=== PATIENT | female | born 1940 | race Caucasian/White ===

== ENCOUNTER 2016-07-08 20:58 | Observation (INO) | payer MEDICARE, MEDICAID ==
[~2016-07-08] VITALS: Ht 142.2 cm; Wt 59.5 kg
[~2016-07-08 20:58] MED LIST: BACI500O RIGHT EYE; CLAR10TA7 PO; COMB0.2S EACH EYE; GLAUCOMA DROPS EACH EYE; LISI-363 PO; LUMI0.01 RIGHT EYE; REFR0.5D4 EACH EYE
[2016-07-08 21:05] VITALS: BP 161/82; PULSE 51; RESP 16; TEMP 97.9; O2SAT 97
[2016-07-08] MEDS ORDERED: LATA0.002 RIGHT EYE (21:50)
[2016-07-08] MEDS ORDERED: MONT10TA4 PO (21:50)
[2016-07-08] MEDS ORDERED: CHOL1TAB42 PO (21:50)
[2016-07-08] MEDS ORDERED: COMB0.2S EACH EYE (21:50)
[2016-07-08] MEDS ORDERED: FLUT50SP EACH NARE (21:50)
[2016-07-08] MEDS ORDERED: LOSA25TA PO (21:50)
[2016-07-08 22:00] VITALS: BP 185/110; PULSE 45; RESP 14; O2SAT 96
--- NOTE | 2016-07-08 22:26 | PD ---
HPI Chief Complaint: Dizziness Time Seen by Provider: 22:18 Travel History International Travel<30 days: No Contact w/Intl Traveler<30days: No Traveled to known affect area: No History of Present Illness HPI 75-year-old female presents to the emergency department by private transportation for one week of progressive worsening dizziness. Patient has also had right shoulder pain for some time as well that hurts when she moves that shoulder. Patient has had no fever no chills has had nausea no vomiting no headache no loss of vision no double vision occasional blurred vision no chest pain no palpitations no shortness of breath no focal upper or lower extremity numbness tingling or weakness. Family members at bedside to translate as patient is Icelandic-speaking and status A/V gum rolling machine tender offered but patient declined status gum rolling machine tender services. Patient's had no cough no shortness of breath no dysuria frequency or urgency and no skin pain. Shoulder pain with range of motion reportedly is 10 over 10 in intensity but 0/10 intensity at rest. No redness or swelling pallor or coolness of any of the limbs. 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/anemia, ovarian cysts, negative right breast biopsy; no tobacco use; nursing notes reviewed Anemia: Yes Arthritis: Yes Diminished Hearing: Yes ([place]) GERD: Yes Glaucoma: Yes Medical other: Yes (FATTY LIVER, PRE LEUKEMEA) Tetanus Vaccination: Unknown Influenza Vaccination: Yes ?: Not : 0 Ovarian Cysts: Yes Past Surgical History Gynecologic Surgery: Yes (RIGHT BREAST BIOPSY: NEGATIVE) Social History Alcohol Use: No Tobacco Use: No Substance Use: No Allergies-Medications (Allergen,Severity, Reaction): Coded Allergies: No Known Allergies (Unverified , 07/08/16) Reported Meds & Prescriptions Reported Meds & Active Scripts Active Reported Vitamin D-3 (Cholecalciferol) 2,000 Unit Tab 2,000 Unit PO DAILY Losartan (Losartan Potassium) 25 Mg Tab 25 Mg PO DAILY Montelukast (Montelukast Sodium) 10 Mg Tab 10 Mg PO HS Latanoprost Opth Drops (Latanoprost) 0.005% Drops 1 Drop RIGHT EYE HS Refrigerate until opened. Combigan Opth Drops (Brimonidine-Timolol Opth Drops) 0.2-0.5% Soln 1 Drop EACH EYE Q12HR Fluticasone Nasal [place] 50 Mcg/Act Naspr 50 Mcg EACH NARE BID 50 mcg/spray Review of Systems Except as stated in HPI: all other systems reviewed are Neg General / Constitutional: No: Fever, Chills HENT: Positive: Lightheadedness, No: Congestion Cardiovascular: No: Chest Pain or Discomfort, Palpitations, Diaphoresis, Syncope, Dyspnea on exertion Respiratory: No: Shortness of Breath Gastrointestinal: Positive: Nausea, No: Vomiting, Abdominal Pain Genitourinary: No: Dysuria, Flank Pain Musculoskeletal: Positive: Limited ROM (right shoulder), Pain (right shoulder) , No: Myalgias, Arthralgias, Weakness, Cramping, Edema Skin: No Rash Neurologic: Positive: Dizziness, No: Weakness, Syncope, Focal Abnormalities, Coordination Problem, Headache, Change in Mentation, Slurred Speech, Incontinence, Seizures, Sensory Disturbance Psychiatric: No: Anxiety, Depression Endocrine: No: Heat Intolerance Hematologic/Lymphatic: No: Easy Bruising Physical Exam Narrative GENERAL: Well-developed well-nourished elderly female in no acute distress no respiratory distress SKIN: Warm and dry. HEAD: Atraumatic. Normocephalic. EYES: Pupils equal and round. No scleral icterus. No injection or drainage. ENT: No nasal bleeding or discharge. Mucous membranes pink and moist. NECK: Trachea midline. No JVD. CARDIOVASCULAR: Decreased Regular rate and rhythm. RESPIRATORY: No accessory muscle use. Clear to auscultation. Breath sounds equal bilaterally. GASTROINTESTINAL: Abdomen soft, non-tender, nondistended. Hepatic and splenic margins not palpable. MUSCULOSKELETAL: Extremities without clubbing, cyanosis, or edema. No obvious deformities. NEUROLOGICAL: Awake and alert. No obvious cranial nerve deficits. Motor grossly within normal limits. Five out of 5 muscle strength in the arms and legs. Normal speech. PSYCHIATRIC: Appropriate mood and affect; insight and judgment normal. Data Data Last Documented VS Vital Signs Date Time Temp Pulse Resp B/P Pulse Ox O2 Delivery O2 Flow Rate FiO2 07/09/16 00:45 50 16 188/75 97 Room Air 07/08/16 21:05 97.9 Orders Electrocardiogram (07/08/16 22:18) Basic Metabolic Panel (Bmp) (07/08/16 22:18) Complete Blood Count With Diff (07/08/16 22:18) Magnesium (Mg) (07/08/16 22:18) Ckmb (Isoenzyme) Profile (07/08/16 22:18) Troponin I (07/08/16 22:18) Act Partial Throm Time (Ptt) (07/08/16 22:18) Prothrombin Time / Inr (Pt) (07/08/16 22:18) Urinalysis - C+S If Indicated (07/08/16 22:18) Chest, Single Ap (07/08/16 22:18) Ct Brain W/O Iv Contrast(Rout) (07/08/16 22:18) Blood Glucose (07/08/16 22:18) Ecg Monitoring (07/08/16 22:18) Iv Access Insert/Monitor (07/08/16 22:18) Oximetry (07/08/16 22:18) Sodium Chloride 0.9% Flush (Ns Flush) (07/08/16 22:30) Orthostatic Vital Signs (07/08/16 22:18) Shoulder, Complete (>2vws) (07/08/16 ) Hydralazine Inj (Apresoline Inj) (07/09/16 02:00) Place In Observation (07/09/16 ) Vital Signs (Adult) Q4H (07/09/16 02:31) Activity Oob With Assistance (07/09/16 02:31) Snuff Grinder And Screener / Telemetry .CONTINUOUS (07/09/16 02:31) Diet Heart Healthy (07/09/16 Breakfast) Sodium Chloride 0.9% Flush (Ns Flush) (07/09/16 02:45) Sodium Chloride 0.9% Flush (Ns Flush) (07/09/16 09:00) Basic Metabolic Panel (Bmp) (07/10/16 06:00) Complete Blood Count With Diff (07/10/16 06:00) Pt Request For Service (07/09/16 02:31) Case Management Consult (07/09/16 02:31) Naloxone Inj (Narcan Inj) (07/09/16 02:45) Hydralazine Inj (Apresoline Inj) (07/09/16 02:45) Admit Order (Ed Use Only) (07/09/16 ) ^ Saline Lock (07/09/16 02:33) Resp Oxygen Camacho C Titrat 1-4 L (07/09/16 ) Notify Dr: Other (07/09/16 02:33) Sodium Chloride 0.9% Flush (Ns Flush) (07/09/16 09:00) Sodium Chloride 0.9% Flush (Ns Flush) (07/09/16 02:45) Labs Laboratory Tests Test 07/08/16 07/09/16 22:35 00:55 White Blood Count 1.9 TH/MM3 Red Blood Count 3.25 MIL/MM3 Hemoglobin 10.9 GM/DL Hematocrit 33.2 % Mean Corpuscular Volume 101.9 FL Mean Corpuscular Hemoglobin 33.6 PG Mean Corpuscular Hemoglobin 33.0 % Concent Red Cell Distribution Width 12.1 % Platelet Count 165 TH/MM3 Mean Platelet Volume 7.5 FL Neutrophils (%) (Auto) 25.2 % Lymphocytes (%) (Auto) 47.8 % Monocytes (%) (Auto) 12.6 % Eosinophils (%) (Auto) 12.3 % Basophils (%) (Auto) 2.1 % Neutrophils # (Auto) 0.5 TH/MM3 Lymphocytes # (Auto) 1.0 TH/MM3 Monocytes # (Auto) 0.2 TH/MM3 Eosinophils # (Auto) 0.2 TH/MM3 Basophils # (Auto) 0.0 TH/MM3 CBC Comment AUTO DIFF Differential Total Cells 100 Counted Neutrophils % (Manual) 13 % Lymphocytes % 54 % Monocytes % 16 % Eosinophils % 12 % Basophils % 5 % Neutrophils # (Manual) 0.2 TH/MM3 Differential Comment FINAL DIFF MANUAL Platelet Estimate NORMAL Platelet Morphology Comment CLUMPED Prothrombin Time 10.8 SEC Prothromb Time International 1.0 RATIO Ratio Activated Partial 26.1 SEC Thromboplast Time Sodium Level 142 MEQ/L Potassium Level 4.6 MEQ/L Chloride Level 110 MEQ/L Carbon Dioxide Level 24.0 MEQ/L Anion Gap 8 MEQ/L Blood Urea Nitrogen 30 MG/DL Creatinine 1.30 MG/DL Estimat Glomerular Filtration 40 ML/MIN Rate Random Glucose 161 MG/DL Calcium Level 8.5 MG/DL Magnesium Level 2.6 MG/DL Total Creatine Kinase 77 U/L Troponin I LESS THAN 0.02 NG/ML Urine Color YELLOW Urine Turbidity CLEAR Urine pH 5.5 Urine Specific [place] 1.010 Urine Protein TRACE mg/dL Urine Glucose (UA) NEG mg/dL Urine Ketones NEG mg/dL Urine Occult Blood NEG Urine Nitrite NEG Urine Bilirubin NEG Urine Leukocyte Esterase NEG Urine Squamous Epithelial 0-5 /hpf Cells Urine Mucus RARE /lpf Microscopic Urinalysis Comment CULT NOT INDICATED MDM Medical Decision Making Medical Screen Exam Complete: Yes Emergency Medical Condition: Yes Medical Record Reviewed: Yes Interpretation(s) EKG sinus bradycardia with first-degree AV block rate [address] elevation or injury pattern change noted Differential Diagnosis Dizziness, vertigo, TIA, arrhythmia, anemia, dehydration, renal insufficiency, ACS, UTI, uncontrolled hypertension Narrative Course Patient's blood pressure remains elevated and heart rate remains 44 therefore will give hydralazine which will be ordered as hydralazine 10 mg IV however this will be administered as hydralazine 5 mg check affect and then if remaining 5 mg needs to be administered will administered at that time however will only received 5 mg as the first dose of hydralazine IV Blood pressure has started taper downward however patient's heart rate has increased to 87 from 44. Patient complains of dizziness. Patient has been monitored with ongoing bradycardia and now complaining of dizziness with heart rate increasing and blood pressure only modestly decreased at this time we'll plan to admit for observation to further delineate source of bradycardia which may be her normal bradycardia or new sinus bradycardia causing symptomatology. Patient's case discussed with on-call [facility] physician. Physician Communication Physician Communication discussed with [facility] --obs Diagnosis Primary Impression: Dizziness Additional Impression: Bradycardia Admitting Information Admitting Physician Requests: Observation Mary Marie MD July 08, 2016 22:26
[2016-07-08] MEDS ORDERED: SODIUM CHLORIDE 0.9% FLUSH 10 ML FLUSH IVF PRN (22:30)
[2016-07-08 22:40] VITALS: BP 176/71; PULSE 46; RESP 16; O2SAT 98
[2016-07-08 22:47] LABS: BASOPHIL % 2.1 % (0.0-2.0); EOSINOPHIL # 0.2 TH/MM3 (0-0.4); EOSINOPHIL % 12.3 % (0.0-4.0); HEMATOCRIT 33.2 % (35.0-46.0); LYMPH % 47.8 % (9.0-44.0); MEAN CELL VOLUME 101.9 FL (80.0-100.0); MEAN CORPUSCULAR HEMOGLOBIN 33.6 PG (27.0-34.0); MONO % 12.6 % (0.0-8.0); NEUT % 25.2 % (16.0-70.0); PLATELET COUNT 165 TH/MM3 (150-450); RED BLOOD COUNT 3.25 MIL/MM3 (4.00-5.30); RED CELL DISTRIBUTION WIDTH 12.1 % (11.6-17.2); WHITE BLOOD COUNT 1.9 TH/MM3 (4.0-11.0)
--- NOTE | 2016-07-08 22:54 | RADHPO ---
EXAM DATE/TIME: 07/08/2016 22:36 [facility] COMPARISON: No previous studies available for comparison. INDICATIONS : Cephalgia. Dizziness for one week. RADIATION DOSE: 59.60 CTDIvol (mGy) MEDICAL HISTORY : None SURGICAL HISTORY : None. ENCOUNTER: Initial ACUITY: 1 week PAIN SCALE: 10/10 LOCATION: cranial TECHNIQUE: Multiple contiguous axial images were obtained of the head. Using automated exposure control and adj ustment of the mA and/or kV according to patient size, radiation dose was kept as low as reasonably a chievable to obtain optimal diagnostic quality images. FINDINGS: CEREBRUM: The ventricles are normal for age. No evidence of midline shift, mass lesion, hemorrhage or acute in farction. No extra-axial fluid collections are seen. Mild, chronic low attenuation seen in the periv entricular white matter. POSTERIOR FOSSA: The cerebellum and brainstem are intact. The 4th ventricle is midline. The cerebellopontine angle i s unremarkable. EXTRACRANIAL: The visualized portion of the orbits is intact. SKULL: The calvaria is intact. No evidence of skull fracture. CONCLUSION: No acute intracranial abnormality. Mild chronic white matter changes. Caio Rodriguez MD on July 08, 2016 at 22:52 Board Certified Radiologist. This report was verified electronically.
[2016-07-08 22:58] LABS: CHLORIDE 110 MEQ/L (98-107); POTASSIUM 4.6 MEQ/L (3.5-5.1); SODIUM (NA) 142 MEQ/L (136-145)
[2016-07-08 23:01] LABS: ANION GAP 8 MEQ/L (5-15); BLOOD UREA NITROGEN 30 MG/DL (7-18); MAGNESIUM 2.6 MG/DL (1.5-2.5)
[2016-07-08 23:02] LABS: APTT (PATIENT) 26.1 SEC (24.3-30.1); PROTHROMBIN TIME - PATIENT 10.8 SEC (9.8-11.6)
[2016-07-08 23:04] LABS: GLOMERULAR FILTRATION RATE 40 ML/MIN (>89)
[2016-07-08 23:05] LABS: HEMO FLAGS AUTO DIFF
[2016-07-08 23:06] LABS: AUTOMATED NEUTROPHIL # 0.5 TH/MM3 (1.8-7.7)
--- NOTE | 2016-07-08 23:20 | RADHPO ---
EXAM DATE/TIME: 07/08/2016 22:50 [facility] COMPARISON: No previous studies available for comparison. INDICATIONS : Syncopal episode & heart palpatations. MEDICAL HISTORY : Gastroesophageal reflux disease. Arthritis. Anemia. Ovarian cyst. SURGICAL HISTORY : Right breast biopsy. Right ankle pinning. ENCOUNTER: Initial ACUITY: 1 week PAIN SCORE: 0/10 LOCATION: chest FINDINGS: The cardiac silhouette is enlarged in transverse diameter. The lungs are free of acute parenchymal op acity. No effusions are identified. Osseous structures are intact. CONCLUSION: Cardiomegaly. No acute cardiopulmonary disease. Kyle Veloz MD on July 08, 2016 at 23:19 Board Certified Radiologist. This report was verified electronically.
--- NOTE | 2016-07-08 23:21 | RADHPO ---
EXAM DATE/TIME: 07/08/2016 22:54 [facility] COMPARISON: No previous studies available for comparison. INDICATIONS : Right shoulder pain with no known injury. MEDICAL HISTORY : Gastroesophageal reflux disease. Arthritis. Anemia.Ovarian cyst. SURGICAL HISTORY : Right breast biopsy. Right ankle pinning. ENCOUNTER: Initial ACUITY: 1 week PAIN SCORE: 10/10 LOCATION: Right shoulder FINDINGS: Multiple view examination of the right shoulder demonstrates no evidence of fracture or dislocation. The glenohumeral and acromioclavicular joints are maintained. There is normal range of motion betwe en internal and external rotation. Bony mineralization is normal. CONCLUSION: 1. There is no evidence of acute fracture. Kyle Veloz MD on July 08, 2016 at 23:19 Board Certified Radiologist. This report was verified electronically.
[2016-07-08 23:30] LABS: CREATINE KINASE 77 U/L (26-192)
[2016-07-08 23:53] LABS: BASOPHILS 5 % (0-2); EOSINOPHILS 12 % (0-4); NEUTROPHIL # MANUAL DIFF 0.2 TH/MM3 (1.8-7.7); POLYS (SEG NEUTROPHILS) 13 % (16-70); WBC DIFF SAMPLE 100
[2016-07-08 23:55] LABS: PLATELET ESTIMATE SMEAR NORMAL (NORMAL); PLATELET MORPHOLOGY CLUMPED (NORMAL); SCAN/DIFF FINAL DIFF MANUAL
[2016-07-09] VITALS (15 sets, daily range): BP systolic 155–220; BP diastolic 52–80; PULSE 46–88; RESP 16–20; TEMP 96.5–97.7; O2SAT 94–99
[2016-07-09 01:08] LABS: BLOOD, URINE NEG (NEG); GLUCOSE,URINE NEG (NEG); KETONE, URINE NEG (NEG); NITRITE,URINE NEG (NEG); PH, URINE 5.5 (5.0-8.5)
[2016-07-09 01:26] LABS: URINE COLOR YELLOW (YELLW/STRAW)
[2016-07-09 01:28] LABS: COMMENT (UR) CULT NOT INDICATED; CULTURE IF INDICATED CULT NOT INDICATED; MUCUS URINE RARE /lpf (OCC); SQUAMOUS EPITHELIAL CELL URINE 0-5 /hpf (0-5)
[2016-07-09] MEDS ORDERED: hydrALAZINE HCL 20 MG/ML VIAL IV PUSH ONE (02:00)
[2016-07-09] MEDS ORDERED: hydrALAZINE HCL 20 MG/ML VIAL IV PUSH PRN (02:45)
[2016-07-09] MEDS ORDERED: NALOXONE HCL 0.4 MG/ML AMP IV PRN (02:45)
[2016-07-09] MEDS ORDERED: SODIUM CHLORIDE 0.9% FLUSH 10 ML FLUSH IVF PRN (02:45)
[2016-07-09] MEDS ORDERED: SODIUM CHLORIDE 0.9% FLUSH 10 ML FLUSH IV FLUSH PRN (02:45)
[2016-07-09] MEDS ORDERED: ACETAMINOPHEN 325 MG TAB PO ONE (06:00)
[2016-07-09] MEDS ORDERED: SODIUM CHLORIDE 0.9% FLUSH 10 ML FLUSH IV FLUSH SCH (09:00)
[2016-07-09] MEDS ORDERED: LOSARTAN 25 MG TAB PO SCH (11:00)
[2016-07-09] MEDS: SODIUM CHLORIDE 0.9% FLUSH 10 ML FLUSH IV FLUSH SCH ×2 (11:16→20:01)
--- NOTE | 2016-07-09 11:24 | HHI.HP ---
HPI Service [facility] Primary Care Physician Meghann Varghese M.D. Admission Diagnosis dizziness; bradycardia Diagnoses: Chief Complaint: Dizziness Travel History International Travel<30 Days: No Contact w/Intl Traveler <30 Da: No Traveled to Known Affected Are: No History of Present Illness The patient is a 75-year-old female with a past medical history of myelodysplastic syndrome who is presenting to the hospital with dizziness. Apparently the patient's dizziness has been getting worse progressively over the past week. She says she has been eating and drinking well. She does endorse some burning upon urination. She says she saw her blood doctor in the office yesterday and that everything seemed to be stable. The patient also endorses right shoulder pain. She says she has shoulder pain when she lifts her arm up over her head. She denies any chest pain. She does endorse a chronic sinus infection that has been going on for years. She says this morning she feels well and has no further dizziness. She says she worked with physical therapy and did well upon ambulation. Review of Systems Except as stated in HPI: all other systems reviewed are Neg Past Family Social History Past Medical History Myelodysplastic syndrome Osteoarthritis Hypertension Glaucoma Fatty liver disease Ovarian cysts DM Allergies: Coded Allergies: No Known Allergies (Unverified , 07/08/16) Active Ordered Medications Current Medications Medications (Trade) Dose Ordered Sig/Jil Route Start Time Stop Time Status Last Admin (Narcan Inj) 0.4 mg UNSCH PRN IV 07/09/16 02:45 (Apresoline Inj) 10 mg Q30M PRN IV PUSH 07/09/16 02:45 (NS Flush) 2 ml BID IV FLUSH 07/09/16 09:00 07/09/16 11:16 (NS Flush) 2 ml UNSCH PRN IVF 07/09/16 02:45 (Flonase Camacho Spr) 1 spray BID EACH NARE 07/09/16 21:00 (Xalatan 0.005% Opth Soln) 1 drop HS RIGHT EYE 07/09/16 21:00 (Cozaar) 25 mg DAILY PO 07/09/16 11:00 07/09/16 11:15 (Singulair) 10 mg HS PO 07/09/16 21:00 (Alphagan 0.2% Opth Soln) 1 drop Q12HR EACH EYE 07/09/16 21:00 (Vitamin D3) 2,000 units DAILY PO 07/10/16 09:00 (Timoptic 0.5% Opth Soln) 1 drop Q12HR EACH EYE 07/09/16 21:00 Family History CAD Diabetes Social History The patient does not smoke or drink. Physical Exam Vital Signs Vital Signs Date Time Temp Pulse Resp B/P Pulse Ox O2 Delivery O2 Flow Rate FiO2 07/09/16 10:08 94 21 07/09/16 08:00 97.7 72 18 161/70 94 07/09/16 03:45 87 07/09/16 03:30 96.5 80 20 159/76 98 07/09/16 03:00 98 21 07/09/16 03:00 88 16 162/77 98 Room Air 07/09/16 02:30 80 163/80 96 Room Air 07/09/16 02:15 48 172/60 97 Room Air 07/09/16 02:00 62 192/68 97 Room Air 07/09/16 01:30 46 172/52 98 Room Air 07/09/16 00:45 50 16 188/75 97 Room Air 07/09/16 00:45 44 16 189/59 50 18 188/75 75 220/62 07/08/16 22:40 46 16 176/71 98 Room Air 07/08/16 22:00 45 14 185/110 96 Room Air 07/08/16 22:00 14 96 Room Air 07/08/16 21:56 45 14 96 07/08/16 21:05 97.9 51 16 161/82 97 Physical Exam GENERAL: This is a well-nourished, well-developed patient, in no apparent distress. SKIN: No rashes, ecchymoses or lesions. Cool and dry. HEAD: Atraumatic. Normocephalic. No temporal or scalp tenderness. EYES: Pupils equal round and reactive. Extraocular motions intact. No scleral icterus. No injection or drainage. ENT: Nose without bleeding, purulent drainage or septal hematoma. Throat without erythema, tonsillar hypertrophy or exudate. Uvula midline. Airway patent. NECK: Trachea midline. No JVD or lymphadenopathy. Supple, nontender, no meningeal signs. CARDIOVASCULAR: Regular rate and rhythm without murmurs, gallops, or rubs. RESPIRATORY: Clear to auscultation. Breath sounds equal bilaterally. No wheezes , rales, or rhonchi. GASTROINTESTINAL: Abdomen soft, non-tender, nondistended. No hepato-splenomegaly , or palpable masses. No guarding. MUSCULOSKELETAL: Extremities without clubbing, cyanosis, or edema. No joint tenderness, effusion, or edema noted. NEUROLOGICAL: Awake and alert. Cranial nerves II through XII intact. Motor and sensory grossly within normal limits. Five out of 5 muscle strength in all muscle groups. Normal speech. PSYCH: Mood and affect appropriate. Laboratory Laboratory Tests Test 07/08/16 07/09/16 22:35 00:55 White Blood Count 1.9 Red Blood Count 3.25 Hemoglobin 10.9 Hematocrit 33.2 Mean Corpuscular Volume 101.9 Mean Corpuscular Hemoglobin 33.6 Mean Corpuscular Hemoglobin 33.0 Concent Red Cell Distribution Width 12.1 Platelet Count 165 Mean Platelet Volume 7.5 Neutrophils (%) (Auto) 25.2 Lymphocytes (%) (Auto) 47.8 Monocytes (%) (Auto) 12.6 Eosinophils (%) (Auto) 12.3 Basophils (%) (Auto) 2.1 Neutrophils # (Auto) 0.5 Lymphocytes # (Auto) 1.0 Monocytes # (Auto) 0.2 Eosinophils # (Auto) 0.2 Basophils # (Auto) 0.0 CBC Comment AUTO DIFF Differential Total Cells 100 Counted Neutrophils % (Manual) 13 Lymphocytes % 54 Monocytes % 16 Eosinophils % 12 Basophils % 5 Neutrophils # (Manual) 0.2 Differential Comment FINAL DIFF MANUAL Platelet Estimate NORMAL Platelet Morphology Comment CLUMPED Prothrombin Time 10.8 Prothromb Time International 1.0 Ratio Activated Partial 26.1 Thromboplast Time Sodium Level 142 Potassium Level 4.6 Chloride Level 110 Carbon Dioxide Level 24.0 Anion Gap 8 Blood Urea Nitrogen 30 Creatinine 1.30 Estimat Glomerular Filtration 40 Rate Random Glucose 161 Calcium Level 8.5 Magnesium Level 2.6 Total Creatine Kinase 77 Troponin I LESS THAN 0.02 Urine Color YELLOW Urine Turbidity CLEAR Urine pH 5.5 Urine Specific [place] 1.010 Urine Protein TRACE Urine Glucose (UA) NEG Urine Ketones NEG Urine Occult Blood NEG Urine Nitrite NEG Urine Bilirubin NEG Urine Leukocyte Esterase NEG Urine Squamous Epithelial 0-5 Cells Urine Mucus RARE Microscopic Urinalysis Comment CULT NOT INDICATED Result Diagram: 07/08/16223407/08/162234 Imaging Last Impressions Head CT 07/08/162217 Signed Impressions: Service Date/Time: Friday, July 08, 2016 22:36 - CONCLUSION: No acute intracranial abnormality. Mild chronic white matter changes. Caio Rodriguez MD Chest X-Ray 07/08/162217 Signed Impressions: Service Date/Time: Friday, July 08, 2016 22:50 - CONCLUSION: Cardiomegaly. No acute cardiopulmonary disease. Kyle Veloz MD Shoulder X-Ray 07/08/16 0000 Signed Impressions: Service Date/Time: Friday, July 08, 2016 22:54 - CONCLUSION: 1. There is no evidence of acute fracture. Kyle Veloz MD Assessment and Plan Assessment and Plan Dizziness/ Bradycardia The patient reported increasing dizziness over the past week. Heart rate was in the 40s upon presentation. Heart rate has returned to normal values. EKG shows 1st degree AVB. Dizziness has resolved. May be s/t hypertensive urgency. - monitor telemetry. - blood pressure control. - physical therapy. - ADAT. Myelodysplastic syndrome Has had a bone marrow biopsy. Discussed with oncologist, Dr. Lopez, who said right now the plan will be to monitor the pt. She has been afebrile. No evidence of bleeding or infection. ANC 0.5. - neutropenic precautions. - follow CBC. - outpt follow-up with oncology. OK for pt to travel to [place] as long as wearing mask per oncology. - antibiotics if spikes a fever. Hypertensive urgency Blood pressure has improved. May be underlying cause of dizziness. - resume home meds and monitor. Renal insufficiency Creatinine not much higher than apparent baseline. - IV fluids and monitor. - Avoid nephrotoxic agents. Diabetes Glucose 161 on admission. - insulin sliding scale. PPx: SCDs. Code Status Full. Discussed Condition With Pt, pt's family, nurse, Dr. Lopez. Jesus Orellana DO July 09, 2016 11:23
[2016-07-09] MEDS ORDERED: SODIUM CHLOR 0.45% 1000 ML INJ 1,000 ML IV SCH (11:45)
--- NOTE | 2016-07-09 11:58 | EKG ---
Date Performed: 07/08/2016 Time Performed: 22:26:46 PTAGE: 75 years EKG: Sinus bradycardia with 1st degree A-V block Abnormal ECG NO PREVIOUS TRACING DOCTOR: Ernie Garcia Interpretating Date/Time 07/09/2016 11:55:43
[2016-07-09 12:57] LABS: HEMATOCRIT 34.2 % (35.0-46.0); MEAN CELL VOLUME 101.3 FL (80.0-100.0); MEAN CORPUSCULAR HEMOGLOBIN 32.8 PG (27.0-34.0); MEAN CORPUSCULAR HGB CONC 32.4 % (32.0-36.0); PLATELET COUNT 181 TH/MM3 (150-450); RED BLOOD COUNT 3.38 MIL/MM3 (4.00-5.30); WHITE BLOOD COUNT 2.1 TH/MM3 (4.0-11.0)
[2016-07-09 13:04] LABS: HEMO FLAGS AUTO DIFF
[2016-07-09 13:25] LABS: EOSINOPHILS 14 % (0-4); PLATELET ESTIMATE SMEAR NORMAL (NORMAL); PLATELET MORPHOLOGY NORMAL (NORMAL); POLYS (SEG NEUTROPHILS) 19 % (16-70); SCAN/DIFF FINAL DIFF MANUAL; WBC DIFF SAMPLE 100
[2016-07-09 13:30] LABS: NEUTROPHIL # MANUAL DIFF 0.4 TH/MM3 (1.8-7.7)
[2016-07-09] MEDS: INSULIN ASPART SUPPLEMENTAL SCALE SQ SCH ×2 (16:30→21:00)
[2016-07-09] MEDS: BRIMONIDINE TARTRATE 0.2% OPHT SOLN 5 ML BTL EACH EYE SCH (20:50)
[2016-07-09] MEDS: LATANOPROST 0.005% OPHT SOLN 2.5 ML BTL RIGHT EYE SCH (20:50)
[2016-07-09] MEDS: MONTELUKAST SODIUM 10 MG TAB PO SCH (20:50)
[2016-07-09] MEDS: TIMOLOL MALEATE 0.5% OPHT SOLN 5 ML BTL EACH EYE SCH (20:51)
[2016-07-09] MEDS: FLUTICASONE PROPIONATE 50 MCG/ACT 16 GM NASAL SPRAY EACH NARE SCH (20:52)
[2016-07-10] VITALS (8 sets, daily range): BP systolic 100–195; BP diastolic 43–92; PULSE 60–99; RESP 18–20; TEMP 96.2–98.5; O2SAT 65–99
[2016-07-10] MEDS: INSULIN ASPART SUPPLEMENTAL SCALE SQ SCH ×4 (05:45→21:00)
[2016-07-10] MEDS ORDERED: hydrALAZINE HCL 20 MG/ML VIAL IV PUSH ONE (06:15)
[2016-07-10 06:46] LABS: HEMATOCRIT 35.1 % (35.0-46.0); MEAN CELL VOLUME 102.7 FL (80.0-100.0); MEAN CORPUSCULAR HEMOGLOBIN 34.1 PG (27.0-34.0); MEAN CORPUSCULAR HGB CONC 33.2 % (32.0-36.0); PLATELET COUNT 171 TH/MM3 (150-450); RED BLOOD COUNT 3.42 MIL/MM3 (4.00-5.30); RED CELL DISTRIBUTION WIDTH 12.1 % (11.6-17.2); WHITE BLOOD COUNT 2.7 TH/MM3 (4.0-11.0)
[2016-07-10 06:53] LABS: POTASSIUM 4.5 MEQ/L (3.5-5.1)
[2016-07-10 06:57] LABS: BICARBONATE 25.5 MEQ/L (21.0-32.0)
[2016-07-10 07:35] LABS: HEMO FLAGS AUTO DIFF
[2016-07-10 07:42] LABS: EOSINOPHILS 15 % (0-4); PLATELET ESTIMATE SMEAR NORMAL (NORMAL); PLATELET MORPHOLOGY NORMAL (NORMAL); POLYS (SEG NEUTROPHILS) 12 % (16-70); SCAN/DIFF FINAL DIFF MANUAL; WBC DIFF SAMPLE 100
[2016-07-10 07:44] LABS: NEUTROPHIL # MANUAL DIFF 0.3 TH/MM3 (1.8-7.7)
--- NOTE | 2016-07-10 08:51 | EKG ---
Date Performed: 07/09/2016 Time Performed: 17:19:02 PTAGE: 75 years EKG: Sinus bradycardia with 1st degree A-V block Abnormal ECG PREVIOUS TRACING : 07/08/2016 22.26 DOCTOR: Jesus Alberto Kohli Interpretating Date/Time 07/10/2016 08:49:26
--- NOTE | 2016-07-10 09:57 | HHI.PR ---
Subjective Remarks The patient feels well this morning. She denied any dizziness or lightheadedness. She says her right shoulder pain is much improved. She is tolerating a diet. 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 Their questions were answered. Objective Vitals Vital Signs Date Time Temp Pulse Resp B/P Pulse Ox O2 Delivery O2 Flow Rate FiO2 07/10/16 08:51 96.2 78 18 148/77 96 07/10/16 06:03 96.5 60 18 195/92 96 07/10/16 00:00 96.2 60 18 164/82 96 07/09/16 20:00 97.0 76 18 155/65 96 07/09/16 20:00 68 07/09/16 19:20 96 21 07/09/16 16:00 97.0 67 18 163/72 07/09/16 12:00 97.0 62 18 167/64 99 07/09/16 10:08 94 21 I/O 07/09/16 07/09/16 07/09/16 07/10/16 07/10/16 07/10/16 07:00 15:00 23:00 07:00 15:00 23:00 Intake Total 240 ml 890 ml 240 ml Output Total 550 ml Balance 240 ml 890 ml -550 ml 240 ml Intake Oral 240 ml 890 ml 240 ml Output Urine Total 550 ml # Voids 4 3 # Bowel Movements 0 1 Result Diagram: 07/10/16 0537 07/10/16 0557 Imaging Last Impressions Head CT 07/08/162217 Signed Impressions: Service Date/Time: Friday, July 08, 2016 22:36 - CONCLUSION: No acute intracranial abnormality. Mild chronic white matter changes. Caio Rodriguez MD Chest X-Ray 07/08/162217 Signed Impressions: Service Date/Time: Friday, July 08, 2016 22:50 - CONCLUSION: Cardiomegaly. No acute cardiopulmonary disease. Kyle Veloz MD Shoulder X-Ray 07/08/16 0000 Signed Impressions: Service Date/Time: Friday, July 08, 2016 22:54 - CONCLUSION: 1. There is no evidence of acute fracture. Kyle Veloz MD Objective Remarks GENERAL: This is a well-nourished, well-developed patient, in no apparent distress. SKIN: No rashes, ecchymoses or lesions. Cool and dry. HEAD: Atraumatic. Normocephalic. No temporal or scalp tenderness. EYES: Pupils equal round and reactive. Extraocular motions intact. No scleral icterus. No injection or drainage. ENT: Nose without bleeding, purulent drainage or septal hematoma. Throat without erythema, tonsillar hypertrophy or exudate. Uvula midline. Airway patent. NECK: Trachea midline. No JVD or lymphadenopathy. Supple, nontender, no meningeal signs. CARDIOVASCULAR: Regular rate and rhythm without murmurs, gallops, or rubs. RESPIRATORY: Clear to auscultation. Breath sounds equal bilaterally. No wheezes , rales, or rhonchi. GASTROINTESTINAL: Abdomen soft, non-tender, nondistended. No hepato-splenomegaly , or palpable masses. No guarding. MUSCULOSKELETAL: Extremities without clubbing, cyanosis, or edema. No joint tenderness, effusion, or edema noted. NEUROLOGICAL: Awake and alert. Cranial nerves II through XII intact. Motor and sensory grossly within normal limits. Five out of 5 muscle strength in all muscle groups. Normal speech. PSYCH: Mood and affect appropriate. Medications and IVs Current Medications Medications (Trade) Dose Ordered Sig/Ijl Route Start Time Stop Time Status Last Admin (Narcan Inj) 0.4 mg UNSCH PRN IV 07/09/16 02:45 (NS Flush) 2 ml BID IV FLUSH 07/09/16 09:00 07/09/16 11:16 (NS Flush) 2 ml UNSCH PRN IVF 07/09/16 02:45 (Flonase Camacho Spr) 1 spray BID EACH NARE 07/09/16 21:00 07/09/16 20:52 (Xalatan 0.005% Opth Soln) 1 drop HS RIGHT EYE 07/09/16 21:00 07/09/16 20:50 (Singulair) 10 mg HS PO 07/09/16 21:00 07/09/16 20:50 (Alphagan 0.2% Opth Soln) 1 drop Q12HR EACH EYE 07/09/16 21:00 07/09/16 20:50 (Vitamin D3) 2,000 units DAILY PO 07/10/16 09:00 (Timoptic 0.5% Opth Soln) 1 drop Q12HR EACH EYE 07/09/16:00 07/09/16 20:51 (Cozaar) 50 mg DAILY PO 07/10/16 09:15 A/P Assessment and Plan Dizziness/ Bradycardia/ Possible sick sinus syndrome The patient reported increasing dizziness over the past week. Heart rate has been in the 40s regularly on telemetry. EKG shows 1st degree AVB. Trops negative. Dizziness has resolved. May be s/t hypertensive urgency. Telemetry revealed episodes of tachycardia, including a 9 beat run of V tach. Concern for sick sinus syndrome. - monitor on telemetry. - blood pressure control. - physical therapy. - ADAT. - check an echo. - repeat EKG. - cardiology consult pending. Myelodysplastic syndrome Has had a bone marrow biopsy. Discussed with oncologist, Dr. Lopez, who said right now the plan will be to monitor the pt. She has been afebrile. No evidence of bleeding or infection. ANC 0.3. - neutropenic precautions. - follow CBC. - outpt follow-up with oncology. - antibiotics if spikes a fever. Hypertensive urgency Blood pressure has improved. May be underlying cause of dizziness. - resume home meds and monitor. Increase Cozaar to 50 mg daily. Renal insufficiency Creatinine not much higher than apparent baseline. - IV fluids and monitor. Improved. - Avoid nephrotoxic agents. Diabetes Glucose 161 on admission. - insulin sliding scale. Well controlled. PPx: SCDs. Discharge Planning Awaiting cardiology evaluation. Jesus Orellana DO July 10, 2016 09:57
[2016-07-10] MEDS: FLUTICASONE PROPIONATE 50 MCG/ACT 16 GM NASAL SPRAY EACH NARE SCH ×2 (10:20→21:51)
[2016-07-10] MEDS: CHOLECALCIFEROL (VIT D3) 1000 UNIT TAB PO SCH (10:21)
[2016-07-10] MEDS: SODIUM CHLORIDE 0.9% FLUSH 10 ML FLUSH IV FLUSH SCH ×2 (10:21→21:51)
[2016-07-10] MEDS: LOSARTAN 50 MG TAB PO SCH (10:23)
[2016-07-10] MEDS: TIMOLOL MALEATE 0.5% OPHT SOLN 5 ML BTL EACH EYE SCH ×2 (10:24→21:51)
[2016-07-10] MEDS: BRIMONIDINE TARTRATE 0.2% OPHT SOLN 5 ML BTL EACH EYE SCH ×2 (10:24→21:51)
[2016-07-10 16:38] LABS: FREE T3 2.44 PG/ML (2.18-3.98); FREE T4 1.14 NG/DL (0.76-1.46)
--- NOTE | 2016-07-10 16:45 | EC ---
Study Study Date:07/10/2016 STUDY CONCLUSIONS SUMMARY - Procedure narrative: Transthoracic echocardiography. Image quality was fair. Scanning was performed from the parasternal, apical, and subcostal acoustic windows. - Left ventricle: The cavity size was normal. Wall thickness was normal. Systolic function was normal. The estimated ejection fraction was in the range of 55% to 60%. Wall motion was normal; there were no regional wall motion abnormalities. - Tricuspid valve: Trace regurgitation. If LV function is below 40, please consider prescribing an ACEI or ARB or document rationale for non-use. PROCEDURE DATA STUDY STATUS: Elective. Procedure: Transthoracic echocardiography. Image quality was fair. Scanning was performed from the parasternal, apical, and subcostal acoustic windows. Study completion: The patient tolerated the procedure well. Transthoracic echocardiography. M-mode, complete 2D, complete spectral Doppler, and color Doppler. Height: Height: 56in. Weight: Weight: 126.7lb. Body mass index: BMI: 28.5kg/m^2. Body surface area: BSA: 1.46m^2. Patient status: Inpatient. CARDIAC ANATOMY LEFT VENTRICLE: The cavity size was normal. Wall thickness was normal. Systolic function was normal. The estimated ejection fraction was in the range of 55% to 60%. Wall motion was normal; there were no regional wall motion abnormalities. AORTIC VALVE: Trileaflet; normal thickness leaflets. Doppler: Transvalvular velocity was within the normal range. There was no stenosis. No regurgitation. Indexed valve area: 1.82cm^2/m^2 (Vmax). AORTA: Aortic root: The aortic root was normal in size. MITRAL VALVE: Structurally normal valve. Doppler: Transvalvular velocity was within the normal range. There was no evidence for stenosis. No regurgitation. LEFT ATRIUM: The atrium was normal in size. RIGHT VENTRICLE: The cavity size was normal. Wall thickness was normal. PULMONIC VALVE: Doppler: Transvalvular velocity was within the normal range. There was no evidence for stenosis. No regurgitation. TRICUSPID VALVE: Structurally normal valve. Doppler: Transvalvular velocity was within the normal range. Trace regurgitation. PULMONARY ARTERY: The main pulmonary artery was normal-sized. Systolic pressure was within the normal range. RIGHT ATRIUM: The atrium was normal in size. PERICARDIUM: There was no pericardial effusion. SYSTEMIC VEINS: Inferior vena cava: The vessel was normal in size. Patient weight: 126.7lb _Ejection fraction:_ 65-75% _Fractional shortening:_ 32% up to 5Kg 5-11.5Kg 11.6-22.9Kg 23-45Kg 45-57Kg Aortic Root 7-13 <17 13-22 17-27 17-27 LA diam 6-13 <23 24-38 33-47 37-40 RVID 10-17 7-15 7-15 7-18 8-17 LVIDd 12-22 <32 24-38 33-47 37-40 LVPW 2-4 3-6 5-7 6-8 7-8 IVS 2-4 3-6 5-7 6-8 7-8 BASIC MEASUREMENTS ADULT NORMAL Left ventricle LV internal dimension, ED, chordal *37.8 mm 43-52 level, PLAX LV internal dimension, ES, chordal 30.9 mm 23-38 level, PLAX Fractional shortening, chordal level, *18 % >29 PLAX LV posterior wall thickness, ED 9.96 mm IVS/LVPW ratio, ED 1.02 <1.3 Ventricular septum Septal thickness, ED 10.2 mm Left atrium Anterior-posterior dimension 37 mm Anterior-posterior dimension index *2.53 cm/m^2 <2.2 BASIC MEASUREMENTS ADULT NORMAL Aortic valve Leaflet separation 19 mm 15-26 Aorta Root diameter, ED *39 mm 20-37 DOPPLER MEASUREMENTS ADULT NORMAL Main pulmonary artery Pressure, S 27 mm Hg =30 Aortic valve Peak velocity, S 107 cm/s Valve area index, Vmax 1.82 cm^2/m^2 Mitral valve Peak E-wave velocity 64.7 cm/s Peak A-wave velocity 109 cm/s Deceleration time *278 ms 150-230 Peak E/A ratio 0.6 Tricuspid valve Regurgitant peak velocity 208 cm/s Peak RV-RA gradient, S 17 mm Hg Maximal regurgitant velocity 208 cm/s Systemic veins Estimated CVP 10 mm Hg Right ventricle RV pressure, S 27 mm Hg <30 LEGEND: Mean values are shown as u=mean value. Asterisk (*) ya values outside specified normal range. Prepared and signed by Ernie Garcia [id number]
[2016-07-10] MEDS: ACETAMINOPHEN 500 MG CPLT PO PRN (17:24)
[2016-07-10] MEDS: MONTELUKAST SODIUM 10 MG TAB PO SCH (21:50)
[2016-07-10] MEDS: LATANOPROST 0.005% OPHT SOLN 2.5 ML BTL RIGHT EYE SCH (21:52)
[2016-07-11] VITALS: BP 139/49; PULSE 55; RESP 18; TEMP 96.4; O2SAT 96
[2016-07-11 04:00] VITALS: BP 152/65; PULSE 64; RESP 18; TEMP 97.8; O2SAT 94
[2016-07-11] MEDS: INSULIN ASPART SUPPLEMENTAL SCALE SQ SCH ×2 (07:00→11:00)
[2016-07-11 08:00] VITALS: BP 194/73; PULSE 108; PULSE 80; RESP 22; TEMP 97.2; O2SAT 99
[2016-07-11 08:25] VITALS: O2SAT 97
--- NOTE | 2016-07-11 08:30 | MB ---
cc: ROYA STEVENS MD DATE OF CONSULTATION 07/11/2016 REASON FOR CONSULTATION Bradycardia questionably symptomatic HISTORY OF PRESENT ILLNESS The patient is a very pleasant Malawian-speaking 75-year-old woman with no prior cardiac history who presents with generalized weakness for about a month. A res counselor was used for this interview. The patient says that she has been progressively losing her balance, but no actual syncope and no specific episodes of lightheadedness, more just generalized weakness, although even with translation, the patient is somewhat vague about these details. On telemetry, she has had periodic bradycardia particularly at night where it is most marked, although this was asymptomatic as she was resting in bed. Currently this morning, she looks and feels well, denying any active symptoms. She has no chest pain, current lightheadedness or dizziness and she denies elaine syncope. PAST MEDICAL HISTORY 1. Myelodysplastic syndrome 2. Osteoarthritis 3. Hypertension 4. Glaucoma 5. Fatty liver disease 6. Diabetes CURRENT MEDICATIONS Cozaar ALLERGIES NO KNOWN DRUG ALLERGIES. PHYSICAL EXAMINATION VITAL SIGNS: Afebrile, pulse 64, respiratory 18, BP 152/65 sating 94% on two liters. GENERAL: This is a pleasant thin elderly woman in no distress. NECK: No JVD. LUNGS: Clear auscultation bilaterally. CARDIOVASCULAR: Regular rate rhythm. No murmurs appreciated. ABDOMEN: Benign. EXTREMITIES: No edema. LABORATORY DATA Sodium 145, potassium 4.5, chloride 112, bicarb 25.5, BUN 24, creatinine 1.2. Cardiac enzymes are negative. White count is 2.7 with 0.3 neutrophils, hematocrit is 35.1. EKG shows sinus bradycardia with first-degree AV block. Telemetry shows sinus bradycardia particularly marked overnight while the patient is presumably sleeping. There was one questionable wide complex tachycardia, but this was clearly artifact. There is no evidence of any actual ventricular dysrhythmia. IMPRESSION Bradycardia. I believe the patient's bradycardia is asymptomatic and not related to her current presentation. She maintains adequate daytime rates and her particularly marked bradycardia is at night, likely reflecting some element of sleep apnea as well. I asked the nurses to ambulate her while she is on telemetry to ensure she has a reasonable heart rate response. I think it is very unlikely a pacemaker would improve her symptoms or quality of life, although it would certainly increase her heart rate. I think it is far more likely that her generalized weakness is due to her hematologic process, but we will continue to watch her on telemetry particularly during the daytime hours when she is most likely to be symptomatic from any exacerbation of her baseline bradycardia. Thank you again for the opportunity to participate in this patient's care. MD NICOLETTE Chew/ELBA /8:12 AM /8:22 AM
[2016-07-11] MEDS: CHOLECALCIFEROL (VIT D3) 1000 UNIT TAB PO SCH (09:30)
[2016-07-11] MEDS: BRIMONIDINE TARTRATE 0.2% OPHT SOLN 5 ML BTL EACH EYE SCH (09:30)
[2016-07-11] MEDS: TIMOLOL MALEATE 0.5% OPHT SOLN 5 ML BTL EACH EYE SCH (09:30)
[2016-07-11] MEDS: LOSARTAN 50 MG TAB PO SCH (09:30)
[2016-07-11] MEDS: SODIUM CHLORIDE 0.9% FLUSH 10 ML FLUSH IV FLUSH SCH (09:31)
[2016-07-11] MEDS: FLUTICASONE PROPIONATE 50 MCG/ACT 16 GM NASAL SPRAY EACH NARE SCH (09:31)
[2016-07-11] MEDS ORDERED: GETGO ROLLING W1 MI1 (10:25)
[2016-07-11] MEDS ORDERED: COZA50TA PO (10:25)
--- NOTE | 2016-07-11 10:26 | HHI.DCPOC ---
Discharge Care Plan Diagnosis: (1) Myelodysplastic syndrome (2) Bradycardia (3) Dizziness (4) Chronic right shoulder pain Goals to Promote Your Health * To prevent worsening of your condition and complications * To maintain your health at the optimal level Directions to Meet Your Goals Take your medications as prescribed Follow your dietary instruction Follow activity as directed Keep your appointments as scheduled Take your immunizations and boosters as scheduled If your symptoms worsen call your PCP, if no PCP go to Urgent Care Center or Emergency Room Smoking is Dangerous to Your Health. Avoid second hand smoke Call the 24-hour hour crisis hotline for domestic abuse at Jesus Orellana DO July 11, 2016 10:26
--- NOTE | 2016-07-11 10:44 | HHI.DS ---
Discharge Summary Admission Date July 09, 2016 at 02:38 Discharge Date: July 11, 2016 Admitting Diagnosis dizziness; bradycardia (1) Chronic right shoulder pain ICD Code: M25.511 (2) Myelodysplastic syndrome ICD Code: D46.9 (3) Bradycardia ICD Code: R00.1 Diagnosis: Principal (4) Dizziness ICD Code: R42 Diagnosis: Principal Procedures None. Brief History - From Admission The patient is a 75-year-old female with a past medical history of myelodysplastic syndrome who is presenting to the hospital with dizziness. Apparently the patient's dizziness has been getting worse progressively over the past week. She says she has been eating and drinking well. She does endorse some burning upon urination. She says she saw her blood doctor in the office yesterday and that everything seemed to be stable. The patient also endorses right shoulder pain. She says she has shoulder pain when she lifts her arm up over her head. She denies any chest pain. She does endorse a chronic sinus infection that has been going on for years. She says this morning she feels well and has no further dizziness. She says she worked with physical therapy and did well upon ambulation. CBC/BMP: 07/10/16 0537 07/10/16 0557 Significant Findings Laboratory Tests Test 07/08/16 07/09/16 07/09/16 07/10/16 22:35 12:47 18:50 05:37 White Blood Count 1.9 TH/MM3 2.1 TH/MM3 2.7 TH/MM3 (4.0-11.0) (4.0-11.0) (4.0-11.0) Red Blood Count 3.25 MIL/MM3 3.38 MIL/MM3 3.42 MIL/MM3 (4.00-5.30) (4.00-5.30) (4.00-5.30) Hemoglobin 10.9 GM/DL 11.1 GM/DL (11.6-15.3) (11.6-15.3) Hematocrit 33.2 % 34.2 % (35.0-46.0) (35.0-46.0) Mean Corpuscular Volume 101.9 FL 101.3 FL 102.7 FL (80.0-100.0) (80.0-100.0) (80.0-100.0) Lymphocytes (%) (Auto) 47.8 % (9.0-44.0) Monocytes (%) (Auto) 12.6 % (0.0-8.0) Eosinophils (%) (Auto) 12.3 % (0.0-4.0) Basophils (%) (Auto) 2.1 % (0.0-2.0) Neutrophils # (Auto) 0.5 TH/MM3 (1.8-7.7) Neutrophils % (Manual) 13 % (16-70) 12 % (16-70) Lymphocytes % 54 % (9-44) 54 % (9-44) 63 % (9-44) Monocytes % 16 % (0-8) 13 % (0-8) 10 % (0-8) Eosinophils % 12 % (0-4) 14 % (0-4) 15 % (0-4) Basophils % 5 % (0-2) Neutrophils # (Manual) 0.2 TH/MM3 0.4 TH/MM3 0.3 TH/MM3 (1.8-7.7) (1.8-7.7) (1.8-7.7) Platelet Morphology Comment CLUMPED (NORMAL) Chloride Level 110 MEQ/L (98-107) Blood Urea Nitrogen 30 MG/DL (7-18) Creatinine 1.30 MG/DL (0.50-1.00) Estimat Glomerular Filtration 40 ML/MIN (>89) Rate Random Glucose 161 MG/DL (74-106) Magnesium Level 2.6 MG/DL (1.5-2.5) Troponin I LESS THAN 0.02 LESS THAN 0.02 NG/ML NG/ML (0.02-0.05) (0.02-0.05) Thyroid Stimulating Hormone 5.940 uIU/ML 3rd Gen (0.358-3.740) Mean Corpuscular Hemoglobin 34.1 PG (27.0-34.0) Test 07/10/16 05:57 Chloride Level 112 MEQ/L (98-107) Blood Urea Nitrogen 24 MG/DL (7-18) Creatinine 1.20 MG/DL (0.50-1.00) Estimat Glomerular Filtration 44 ML/MIN (>89) Rate Imaging Last Impressions Head CT 07/08/162217 Signed Impressions: Service Date/Time: Friday, July 08, 2016 22:36 - CONCLUSION: No acute intracranial abnormality. Mild chronic white matter changes. Caio Rodriguez MD Chest X-Ray 07/08/162217 Signed Impressions: Service Date/Time: Friday, July 08, 2016 22:50 - CONCLUSION: Cardiomegaly. No acute cardiopulmonary disease. Kyle Veloz MD Shoulder X-Ray 07/08/16 0000 Signed Impressions: Service Date/Time: Friday, July 08, 2016 22:54 - CONCLUSION: 1. There is no evidence of acute fracture. Kyle Veloz MD PE at Discharge GENERAL: This is a well-nourished, well-developed patient, in no apparent distress. SKIN: No rashes, ecchymoses or lesions. Cool and dry. HEAD: Atraumatic. Normocephalic. No temporal or scalp tenderness. EYES: Pupils equal round and reactive. Extraocular motions intact. No scleral icterus. No injection or drainage. ENT: Nose without bleeding, purulent drainage or septal hematoma. Throat without erythema, tonsillar hypertrophy or exudate. Uvula midline. Airway patent. NECK: Trachea midline. No JVD or lymphadenopathy. Supple, nontender, no meningeal signs. CARDIOVASCULAR: Regular rate and rhythm without murmurs, gallops, or rubs. RESPIRATORY: Clear to auscultation. Breath sounds equal bilaterally. No wheezes , rales, or rhonchi. GASTROINTESTINAL: Abdomen soft, non-tender, nondistended. No hepato-splenomegaly , or palpable masses. No guarding. MUSCULOSKELETAL: Extremities without clubbing, cyanosis, or edema. No joint tenderness, effusion, or edema noted. NEUROLOGICAL: Awake and alert. Cranial nerves II through XII intact. Motor and sensory grossly within normal limits. Five out of 5 muscle strength in all muscle groups. Normal speech. PSYCH: Mood and affect appropriate. Pt update on day of discharge The pt was feeling well and wanted to go home. Her sister was at the bedside. She saw the marketing content coordinator this morning. She has had no more dizziness even when ambulating. Right shoulder pain is stable. Hospital Course Dizziness/ Bradycardia The patient reported increasing dizziness over the past week. Heart rate has been in the 40s regularly on telemetry. EKG shows 1st degree AVB. Trops negative. Dizziness has resolved. Echo unremarkable. Cardiology was consulted. The pt's heart rate responded appropriately to ambulating. She remained asymptomatic. TSH was elevated but free T3 and free T4 were within normal limits. She worked with physical therapy. The pt is on timolol eye drops. The pt was told that her eye drops may be contributing to her bradycardia. She was instructed to contact her duck farmer about switching timolol to another medication for glaucoma as it was recommended to discontinue timolol for now. The pt was agreeable. The pt will follow up with cardiology as an outpt. Myelodysplastic syndrome Has had a bone marrow biopsy. Discussed with oncologist, Dr. Lopez, who said right now the plan will be to monitor the pt. She has been afebrile. No evidence of bleeding or infection. ANC 0.3. She was placed on neutropenic precautions. She will have outpt follow-up with oncology. Hypertensive urgency We increases her home Cozaar dose to 50 mg daily. Her blood pressure improved. She will follow up with her PCP. Renal insufficiency Creatinine not much higher than apparent baseline. She received IV fluids and her creatinine improved. She will follow up with her PCP. Diabetes Glucose 161 on admission but remained well controlled during the admission. Pt Condition on Discharge: Stable Discharge Disposition: Discharge Home Discharge Time: <= 30 minutes Discharge Instructions DIET: Follow Instructions for: Diabetic Diet Activities you can perform: Weight Bearing as Javier Follow up Referrals: Cardiology - [address] Jameson Oncology - [address] Lopez PCP Follow-up - 1 Week New Medications: Walker Rolling/GetGo (Walker Rolling/GetGo) 1 Mis Mis 1 EA .ROUTE DIRECTED #1 EA Losartan (Cozaar) 50 Mg Tab 50 MG PO DAILY Blood Pressure Management #30 TAB Continued Medications: Brimonidine-Timolol Opth Drops (Combigan Opth Drops) 0.2-0.5% Soln 1 DROP EACH EYE Q12HR Glaucoma Ref 0 BOTTLE Cholecalciferol (Vitamin D-3) 2,000 Unit Tab 2000 UNIT PO DAILY Fluticasone Nasal [place] (Fluticasone Nasal [place]) 50 Mcg/Act Naspr 50 MCG EACH NARE BID 50 mcg/spray Allergy Management #1 Ref 0 BOTTLE Latanoprost Opth Drops (Latanoprost Opth Drops) 0.005% Drops 1 DROP RIGHT EYE HS Refrigerate until opened. Glaucoma #2.5 Ref 0 ML Montelukast (Montelukast) 10 Mg Tab 10 MG PO HS #30 Ref 0 TAB Discontinued Medications: Losartan (Losartan) 25 Mg Tab 25 MG PO DAILY Blood Pressure Management #30 Ref 0 TAB Jesus Orellana DO July 11, 2016 10:44
[2016-07-11] MEDS: ACETAMINOPHEN 500 MG CPLT PO PRN (10:45)
[2016-07-11 13:17] VITALS: BP 112/52; PULSE 45; RESP 18; O2SAT 98
--- NOTE | 2016-07-11 16:06 | EKG ---
Date Performed: 07/10/2016 Time Performed: 06:06:36 PTAGE: 75 years EKG: Sinus jessica arrhythmia Consider left atrial abnormality First degree block Abnormal ECG Com pared to PREVIOUS TRACING of 07/09/2016, no significant change. PREVIOUS TRACIN07/09/2016 17.1 9 DOCTOR: Kyle Arvizu Interpretating Date/Time 07/11/2016 16:05:17
== END 2016-07-11 14:14 | disposition home or self-care (01) ==
LOC: PHED 20:58 → PHEDH 07-09 02:38 → PH3A 07-09 03:31
PROVIDERS: ADMIT Hospitalist; ATTEND Hospitalist
DX: R42 Dizziness and giddiness (principal); R00.1 Bradycardia, unspecified; G89.29 Other chronic pain; M25.511 Pain in right shoulder; D46.9 Myelodysplastic syndrome, unspecified; E11.9 Type 2 diabetes mellitus without complications; N28.9 Disorder of kidney and ureter, unspecified; I16.0 Hypertensive urgency; M19.90 Unspecified osteoarthritis, unspecified site; K76.0 Fatty (change of) liver, not elsewhere classified; K21.9 Gastro-esophageal reflux disease without esophagitis; H91.90 Unspecified hearing loss, unspecified ear; H40.9 Unspecified glaucoma; Z85.6 Personal history of leukemia
CPT/HCPCS: 70450; 71010; 73030; 80048; 81001; 82550; 82948; 83735; 84439; 84443; 84481; 84484; 85007; 85027; 85610; 85730; 93005; 93306; 96374; 97110; 97116; 97162; 99285; G0378; G8987; G8988; J0360

== ENCOUNTER 2017-03-08 10:40 | Emergency (ER) | payer MEDICARE, MEDICAID ==
[~2017-03-08] VITALS: Ht 144.8 cm; Wt 58.0 kg
[~2017-03-08 10:40] MED LIST changes: -BACI500O RIGHT EYE; +CHOL1TAB42 PO; -CLAR10TA7 PO; +COZA50TA PO; +FLUT50SP EACH NARE; +GETGO ROLLING W1 MI1; -GLAUCOMA DROPS EACH EYE; +LATA0.002 RIGHT EYE; -LISI-363 PO; -LUMI0.01 RIGHT EYE; +MONT10TA4 PO; -REFR0.5D4 EACH EYE
[2017-03-08 10:44] VITALS: BP 209/88; PULSE 75; RESP 16; TEMP 99.5; O2SAT 98
[2017-03-08] MEDS ORDERED: FLUO0.0122 EACH EAR (10:56)
--- NOTE | 2017-03-08 11:21 | PD ---
HPI Chief Complaint: Cold / Flu Symptoms Time Seen by Provider: 11:22 Travel History International Travel<30 days: No Contact w/Intl Traveler<30days: No Traveled to known affect area: No History of Present Illness HPI 76-year-old female presents to emergency department complaining of cough and cold-like symptoms for approximately 3 days. States she is having clear rhinorrhea and a nonproductive cough. Denies shortness of breath or chest pain. States that she has thick phlegm that will get "stuck in her throat" that makes it difficult to breathe but she is able to clear this on her own. Denies fevers or chills. She does not know if she has had any sick contacts. Denies nausea, vomiting or diarrhea. PFSH Past Medical History Anemia: Yes Arthritis: Yes Diabetes: Yes Patient Takes Glucophage: No Diminished Hearing: Yes ([place] BILAT) GERD: Yes Glaucoma: Yes Hypertension: Yes Tetanus Vaccination: Unknown : 0 Ovarian Cysts: Yes Past Surgical History Gynecologic Surgery: Yes (RIGHT BREAST BIOPSY: NEGATIVE) Social History Alcohol Use: No Tobacco Use: No Substance Use: No Allergies-Medications (Allergen,Severity, Reaction): Coded Allergies: No Known Allergies (Unverified Adverse Reaction, Unknown, 03/08/17) Reported Meds & Prescriptions Reported Meds & Active Scripts Active Azithromycin 250 Mg Tab 250 Mg PO DIRECTED Take 2 tabs (500 mg) on day 1 then 1 tab daily x 4 days. Ventolin Hfa 18 GM Inh (Albuterol Sulfate) 90 Mcg/Act Aer 1 Puff INH Q4H PRN Cozaar (Losartan Potassium) 50 Mg Tab 50 Mg PO DAILY Reported Fluocinolone Otic Drops 0.01% Drops 5 Drop EACH EAR BID Vitamin D-3 (Cholecalciferol) 2,000 Unit Tab 2,000 Unit PO DAILY Combigan Opth Drops (Brimonidine-Timolol Opth Drops) 0.2-0.5% Soln 1 Drop EACH EYE Q12HR Fluticasone Nasal Channing 50 Mcg/Act Naspr 50 Mcg EACH NARE BID 50 mcg/spray Review of Systems Except as stated in HPI: all other systems reviewed are Neg Physical Exam Narrative GENERAL: Well-nourished, well-developed patient. SKIN: Focused skin assessment warm/dry. HEAD: Normocephalic. EYES: No scleral icterus. No injection or drainage. NECK: Supple, trachea midline. No JVD or lymphadenopathy. THROAT: No pharyngeal injection, exudates, or tonsillar hypertrophy. Airway is patent. CARDIOVASCULAR: Regular rate and rhythm without murmurs, gallops, or rubs. RESPIRATORY: Bilateral lower lobes rhonchi. No rales or wheezing noted MUSCULOSKELETAL: No cyanosis, or edema. BACK: Nontender without obvious deformity. No CVA tenderness. Data Data Last Documented VS Vital Signs Date Time Temp Pulse Resp B/P (MAP) Pulse Ox O2 Delivery O2 Flow Rate FiO2 03/08/17 10:44 99.5 75 16 209/88 (128) 98 Orders Orders Chest, Pa & Lat (03/08/17 ) Albuterol-Ipratropium Neb (Duoneb Neb) (03/08/17 11:30) Ct Thorax/ Chest Wo Iv Contras (03/08/17 ) Ed Discharge Order (03/08/17 14:15) MDM Medical Decision Making Medical Screen Exam Complete: Yes Emergency Medical Condition: Yes Differential Diagnosis Pneumonia, URI, bronchitis Narrative Course 76-year-old female presents to emergency department complaining of cough and cold-like symptoms for approximately 3 days. States she is having clear rhinorrhea and a nonproductive cough. Denies shortness of breath or chest pain. States that she has thick phlegm that will get "stuck in her throat" that makes it difficult to breathe but she is able to clear this on her own. Denies fevers or chills. She does not know if she has had any sick contacts. Denies nausea, vomiting or diarrhea. Vital signs stable. Physical exam findings concerning for pneumonia versus bronchitis. Nebulizer administered. Patient states that she feels much better. Chest x-ray demonstrates a possible mass. Chest CT ordered. Last Impressions Chest X-Ray 03/08/17 0000 Signed Impressions: Service Date/Time: Wednesday, March 08, 2017 11:52 - CONCLUSION: Possible mass in the medial right upper lung. A noncontrast CT examination of the chest is recommended. Caio Rodriguez MD Chest CT 03/08/17 0000 Signed Impressions: Service Date/Time: Wednesday, March 08, 2017 13:28 - CONCLUSION: 1. Minimal atelectasis or consolidation at the left lateral base. 2. The area of increased density seen on the chest x-ray at the superior medial right upper chest is secondary to ectatic vessels. Caio Rodriguez MD Pt will be treated with antibiotics and inhaler. She is stable, in no acute distress, resting comfortably. Advised to follow up with her PCP this week and return to the ED for worsening or persistent symptoms. Diagnosis Primary Impression: Pneumonia Qualified Codes: J18.1 - Lobar pneumonia, unspecified organism Referrals: Primary Care Physician Additional Instructions: Take medication as prescribed. Follow up with your primary care physician within 2-3 days. If your symptoms persist or worsen, return to the emergency department. You may use nasal saline [id number] for the runny nose Consider using Zyrtec, Claritin, or Angelina for a possible allergic component to your upper respiratory symptoms. Scripts Azithromycin (Azithromycin) 250 Mg Tab 250 MG PO DIRECTED for Infection, #6 TAB 0 Refills Take 2 tabs (500 mg) on day 1 then 1 tab daily x 4 days. Prov: Anahi Stevens 03/08/17 Albuterol 18 GM Inh (Ventolin Hfa 18 GM Inh) 90 Mcg/Act Aer 1 PUFF INH Q4H Y for SHORTNESS OF BREATH, #1 INHALER 0 Refills Prov: Anahi Stevens 03/08/17 Disposition: 01 DISCHARGE HOME Condition: Stable Anahi Stevens Mar 08, 2017 11:21
[2017-03-08] MEDS ORDERED: RESP: ALBUTEROL 2.5 MG/IPRATROPIUM 0.5 MG NEB (SCH) NEB ONE (11:30)
--- NOTE | 2017-03-08 12:42 | RADRPT ---
EXAM DATE/TIME: 03/08/2017 11:52 [facility] COMPARISON: CHEST PA & LAT, April 23, 2014, 19:30. INDICATIONS : Cough, short of breath MEDICAL HISTORY : None. SURGICAL HISTORY : None. ENCOUNTER: Initial ACUITY: 3 days PAIN SCORE: 4/10 LOCATION: Bilateral chest FINDINGS: The heart size is normal. There is increased density at the medial right upper lung. An underlying ma ss could be present. The remaining aspects the lungs appear clear. No effusion is seen. There is a le vocurvature of the thoracic spine. CONCLUSION: Possible mass in the medial right upper lung. A noncontrast CT examination of the chest is recommende dYoav Rodriguez MD on March 08, 2017 at 12:35 Board Certified Radiologist. This report was verified electronically.
--- NOTE | 2017-03-08 14:05 | RADRPT ---
EXAM DATE/TIME: 03/08/2017 13:28 [facility] COMPARISON: CHEST PA & LAT, March 08, 2017, 11:52. INDICATIONS : Cough and congestion for three days. RADIATION DOSE: 13.67 CTDIvol (mGy) MEDICAL HISTORY : Gastroesophageal reflux disease. Hypertension. Diabetes mellitus type 2. SURGICAL HISTORY : Right breast biopsy. ENCOUNTER: Initial ACUITY: 3 days PAIN SCALE: 0/10 LOCATION: Bilateral chest TECHNIQUE: Volumetric scanning of the chest was performed. Using automated exposure control and adjustment of t he mA and/or kV according to patient size, radiation dose was kept as low as reasonably achievable to obtain optimal diagnostic quality images. DICOM format image data is available electronically for r eview and comparison. Follow-up recommendations for detected pulmonary nodules are based at a minimum on nodule size and pa tient risk factors according to Fleischner Society Guidelines. FINDINGS: LUNGS: The area of increased density seen on the chest x-ray at the superior medial right chest is secondary to ectatic vessels. There is mild atelectasis at the left lateral base. PLEURAE: There is no pleural thickening or pleural effusion. MEDIASTINUM: The heart and great vessels demonstrate no acute abnormality. There is no mediastinal or hilar lymph adenopathy. There are a few coronary artery calcifications. AXILLAE: Within normal limits. No lymphadenopathy. MUSCULOSKELETAL: Within normal limits for patient age. MISCELLANEOUS: The visualized upper abdominal organs demonstrate no acute abnormality. CONCLUSION: 1. Minimal atelectasis or consolidation at the left lateral base. 2. The area of increased density seen on the chest x-ray at the superior medial right upper chest is secondary to ectatic vessels. Caio Rodriguez MD on March 08, 2017 at 13:58 Board Certified Radiologist. This report was verified electronically.
[2017-03-08] MEDS ORDERED: VENTAER INH (14:12)
[2017-03-08] MEDS ORDERED: AZIT250T3 PO (14:12)
== END 2017-03-08 14:35 | disposition home or self-care (01) ==
LOC: PHEFT 10:40
DX: J18.9 Pneumonia, unspecified organism (principal); D64.9 Anemia, unspecified; M19.90 Unspecified osteoarthritis, unspecified site; E11.9 Type 2 diabetes mellitus without complications; K21.9 Gastro-esophageal reflux disease without esophagitis; I10 Essential (primary) hypertension; H40.9 Unspecified glaucoma; Z79.899 Other long term (current) drug therapy
CPT/HCPCS: 71020; 71250; 94664

== ENCOUNTER 2017-10-25 15:56 | Inpatient (IN) ==
[2017-10-25] MEDS ORDERED: Sod Chloride 0.9% Inj 1,000 ML IV.CONT SCH (17:00)
--- NOTE | 2017-10-25 17:04 | ED ---
HPI General Chief complaint: GI Bleed Stated complaint: medical Time Seen by Provider: 10/25/17 16:51 Source: patient Mode of arrival: ambulatory Limitations: no limitations History of Present Illness HPI Narrative: Patient has had dark tarry stools over the last 2 weeks which were intermittent, however today she has had multiple episodes of black tarry stools since approximately 1:00 in the afternoon. Patient denies taking any blood thinners other than aspirin. Patient has a known history of myelodysplastic syndrome. Patient has a history of diabetes type 2, GERD, glaucoma, hypertension, osteopenia, vitamin D deficiency, cataract surgery... Dr. Lopez is the oncologist. MD complaint: melena Pain Consistency: constant Severity: mild Relieving factors: none Exacerbating factors: none Context: history of GI bleed Associated symptoms: denies other symptoms Related Data Home Medications Medication Instructions Recorded Confirmed amlodipine 10 mg PO DAILY 10/25/17 10/25/17 brimonidine 1 drp OPHTHALMIC (EYE) BID 10/25/17 10/25/17 carboxymethylcellulose sodium 2 drp OPHTHALMIC (EYE) Q2-4H PRN 10/25/17 10/25/17 [Refresh Tears] latanoprost 1 drp RIGHT EYE QPM 10/25/17 10/25/17 Allergies Allergy/AdvReac Type Severity Reaction Status Date / Time No Known Allergies Unknown Uncoded 03/08/17 10:44 Review of Systems ROS: all other systems reviewed are negative PMFSH History History Provided By: Patient Medical History Medical History Diabetes (Acute) GERD (gastroesophageal reflux disease) (Acute) HTN (hypertension) (Acute) Incontinence (Acute) Leukemia (Acute) Surgical History Surgical History S/P surgical manipulation of ankle joint (Acute) Family History Family History Other Family history normal Social History Social History Substance History: No History of Abuse Second Hand Smoke Exposure: No Smoking Status: Never smoker How Often Do You Have a Drink Containing Alcohol: Never Recent Travel in [place] within the Last 8 Weeks: No Recent Out of Country Travel within the Last 8 Weeks: No Exam Narrative Exam Narrative: GENERAL: Well-nourished, well-developed patient in no apparent distress. SKIN: Warm and dry. HEAD: Atraumatic. Normocephalic. EYES: Pupils equal and round. No scleral icterus. No injection or drainage. ENT: No nasal bleeding or discharge. Mucous membranes pink and moist. NECK: Trachea midline. No JVD. CARDIOVASCULAR: Regular rate and rhythm. no rubs or gallops RESPIRATORY: No accessory muscle use. Clear to auscultation. Breath sounds equal bilaterally. GASTROINTESTINAL: Abdomen soft, non-tender, nondistended. No rebound or guarding.... Digital rectal exam was performed with tach Alfonso at the bedside assisting, black tarry stool noted and guaiac positive MUSCULOSKELETAL: Extremities without clubbing, cyanosis, or edema. No obvious deformities. NEUROLOGICAL: Awake and alert. No obvious cranial nerve deficits. Motor grossly within normal limits. Five out of 5 muscle strength in the arms and legs. Normal speech. PSYCHIATRIC: Appropriate mood and affect; insight and judgment normal. Course Initial Documented Vital Signs Temperature 97.5 F L 10/25/17 16:31 Pulse Rate 71 10/25/17 16:31 Respiratory Rate 20 10/25/17 16:31 Blood Pressure 184/72 H 10/25/17 16:31 Pulse Oximetry 98 10/25/17 16:31 Last Documented Vital Signs Temperature 97.5 F L 10/26/17 00:00 Pulse Rate 79 10/26/17 00:00 Respiratory Rate 18 10/26/17 00:00 Blood Pressure 173/73 H 10/26/17 00:00 Pulse Oximetry 93 L 10/26/17 00:00 Medical Decision Making MDM Narrative Medical Screen Exam Complete: Yes Emergency Medical Condition: Yes Differential Diagnosis Differential Diagnosis: versus electrolyte abnormalitiesDiverticulosis versus colitis versus GI bleed versus oncologic cause of bleeding versus anemia Medical Records Medical records reviewed: Yes I reviewed the patient's medical records. Lab Data Lab results reviewed: Yes I reviewed the patient's lab results. Lab results narrative: anemia, renal insufficiency noted by lab interpretation Result diagrams: 10/26/17 00:00 10/25/17 17:10 Lab Results 10/25/17 10/25/17 10/25/17 Range/Units 17:10 17:10 17:10 WBC 3.1 L (4.0-11.0) th/mm3 RBC 2.92 L (4.00-5.30) mil/mm3 Hgb 10.4 L (11.6-15.3) gm/dL Hct 30.7 L (35.0-46.0) % MCV 105.2 H (80.0-100.0) fL MCH 35.7 H (27.0-34.0) pg MCHC 34.0 (32.0-36.0) % RDW 13.7 (11.6-17.2) % Plt Count 156 (150-450) th/mm3 MPV 7.8 (7.0-11.0) fL Neut % (Auto) 32.0 (16.0-70.0) % Lymph % (Auto) 44.1 H (9.0-44.0) % Mccreary % (Auto) 13.1 H (0.0-8.0) % Eos % (Auto) 8.7 H (0.0-4.0) % Baso % (Auto) 2.1 H (0.0-2.0) % Neut # (Auto) 1.0 L (1.8-7.7) th/mm3 Lymph # (Auto) 1.4 (1.0-4.8) th/mm3 Mccreary # (Auto) 0.4 (0.0-0.9) th/mm3 Eos # (Auto) 0.3 (0.0-0.4) th/mm3 Baso # (Auto) 0.1 (0.0-0.2) th/mm3 WBC Differential . Differential Comment Auto diff final PT 10.5 (9.8-11.6) sec INR 1.0 Ratio APTT 25.3 (24.3-30.1) sec Sodium 140 (136-145) meq/L Potassium 5.2 H (3.5-5.1) meq/L Chloride 111 H (98-107) meq/L Carbon Dioxide 20.3 L (21.0-32.0) meq/L Anion Gap 9 (5-15) meq/L BUN 31 H (7-18) mg/dL Creatinine 1.86 H (0.50-1.00) mg/dL Estimated GFR 26 L (>89) mL/min POC Glucose (68-110) mg/dl Random Glucose 90 (74-106) mg/dL Calcium 8.6 (8.5-10.1) mg/dL Total Bilirubin 0.4 (0.2-1.0) mg/dL AST 62 H (15-37) U/L ALT 61 H (10-53) U/L Alkaline Phosphatase 201 H (45-117) U/L Total Protein 7.9 (6.4-8.2) g/dL Albumin 3.6 (3.4-5.0) g/dL Lipase 238 (73-393) U/L Blood Type Blood Type Recheck Antibody Screen 10/25/17 10/25/17 10/25/17 Range/Units 17:10 19:44 22:27 WBC (4.0-11.0) th/mm3 RBC (4.00-5.30) mil/mm3 Hgb (11.6-15.3) gm/dL Hct (35.0-46.0) % MCV (80.0-100.0) fL MCH (27.0-34.0) pg MCHC (32.0-36.0) % RDW (11.6-17.2) % Plt Count (150-450) th/mm3 MPV (7.0-11.0) fL Neut % (Auto) (16.0-70.0) % Lymph % (Auto) (9.0-44.0) % Mccreary % (Auto) (0.0-8.0) % Eos % (Auto) (0.0-4.0) % Baso % (Auto) (0.0-2.0) % Neut # (Auto) (1.8-7.7) th/mm3 Lymph # (Auto) (1.0-4.8) th/mm3 Mccreary # (Auto) (0.0-0.9) th/mm3 Eos # (Auto) (0.0-0.4) th/mm3 Baso # (Auto) (0.0-0.2) th/mm3 WBC Differential Differential Comment PT (9.8-11.6) sec INR Ratio APTT (24.3-30.1) sec Sodium (136-145) meq/L Potassium (3.5-5.1) meq/L Chloride (98-107) meq/L Carbon Dioxide (21.0-32.0) meq/L Anion Gap (5-15) meq/L BUN (7-18) mg/dL Creatinine (0.50-1.00) mg/dL Estimated GFR (>89) mL/min POC Glucose 79 92 (68-110) mg/dl Random Glucose (74-106) mg/dL Calcium (8.5-10.1) mg/dL Total Bilirubin (0.2-1.0) mg/dL AST (15-37) U/L ALT (10-53) U/L Alkaline Phosphatase (45-117) U/L Total Protein (6.4-8.2) g/dL Albumin (3.4-5.0) g/dL Lipase (73-393) U/L Blood Type O Positive Blood Type Recheck Required Antibody Screen Negative 10/26/17 Range/Units 00:00 WBC (4.0-11.0) th/mm3 RBC (4.00-5.30) mil/mm3 Hgb 9.7 L (11.6-15.3) gm/dL Hct 29.0 L (35.0-46.0) % MCV (80.0-100.0) fL MCH (27.0-34.0) pg MCHC (32.0-36.0) % RDW (11.6-17.2) % Plt Count (150-450) th/mm3 MPV (7.0-11.0) fL Neut % (Auto) (16.0-70.0) % Lymph % (Auto) (9.0-44.0) % Mccreary % (Auto) (0.0-8.0) % Eos % (Auto) (0.0-4.0) % Baso % (Auto) (0.0-2.0) % Neut # (Auto) (1.8-7.7) th/mm3 Lymph # (Auto) (1.0-4.8) th/mm3 Mccreary # (Auto) (0.0-0.9) th/mm3 Eos # (Auto) (0.0-0.4) th/mm3 Baso # (Auto) (0.0-0.2) th/mm3 WBC Differential Differential Comment PT (9.8-11.6) sec INR Ratio APTT (24.3-30.1) sec Sodium (136-145) meq/L Potassium (3.5-5.1) meq/L Chloride (98-107) meq/L Carbon Dioxide (21.0-32.0) meq/L Anion Gap (5-15) meq/L BUN (7-18) mg/dL Creatinine (0.50-1.00) mg/dL Estimated GFR (>89) mL/min POC Glucose (68-110) mg/dl Random Glucose (74-106) mg/dL Calcium (8.5-10.1) mg/dL Total Bilirubin (0.2-1.0) mg/dL AST (15-37) U/L ALT (10-53) U/L Alkaline Phosphatase (45-117) U/L Total Protein (6.4-8.2) g/dL Albumin (3.4-5.0) g/dL Lipase (73-393) U/L Blood Type Blood Type Recheck Antibody Screen Imaging Data Radiologist's impression: Venous Doppler Study 10/25/17 00:00 CONCLUSION: 1. The study is negative for lower extremity deep venous thrombosis. Abdomen/Pelvis CT 10/25/17 16:52 CONCLUSION: 1. Negative noncontrast CT abdomen/pelvis. Discharge Plan Physicians Team ED Provider: Christian Burns Attending Provider: Hermilo Andersen Other Providers: Danie Yeh Rxs /Orders / Referrals /Forms Prescriptions: No Action latanoprost 0.005 % Drops 1 drp RIGHT EYE QPM RF: 0 carboxymethylcellulose sodium [Refresh Tears] 0.5 % Drops 2 drp OPHTHALMIC (EYE) Q2-4H PRN (Reason: Dry Eye(S)) RF: 0 amlodipine 10 mg Tablet 10 mg PO DAILY RF: 0 brimonidine 0.2 % Drops 1 drp OPHTHALMIC (EYE) BID RF: 0 Discharge Interventions Interventions: ED Discharge Assessment Last Done: 10/25/17 22:11 Vital Signs Last Done: 10/25/17 17:01 Status ED Status: Left Department Discharge Information Discharge Date/Time: 10/25/17 22:12
[2017-10-25 17:39] LABS: Baso # (Auto) 0.1 th/mm3 (0.0-0.2); Baso % (Auto) 2.1 % (0.0-2.0); Eos # (Auto) 0.3 th/mm3 (0.0-0.4); Eos % (Auto) 8.7 % (0.0-4.0); Hematocrit 30.7 % (35.0-46.0); Hemoglobin 10.4 gm/dL (11.6-15.3); Lymph # (Auto) 1.4 th/mm3 (1.0-4.8); Lymph % (Auto) 44.1 % (9.0-44.0); Mean Corpuscular Hemoglobin 35.7 pg (27.0-34.0); Mean Corpuscular Volume 105.2 fL (80.0-100.0); Mean Platelet Volume 7.8 fL (7.0-11.0); Mono # (Auto) 0.4 th/mm3 (0.0-0.9); Mono % (Auto) 13.1 % (0.0-8.0); Platelet Count 156 th/mm3 (150-450); Red Blood Count 2.92 mil/mm3 (4.00-5.30); Red Cell Distribution Width 13.7 % (11.6-17.2); White Blood Count 3.1 th/mm3 (4.0-11.0)
[2017-10-25 17:47] LABS: Activated Partial Thrombo Time 25.3 sec (24.3-30.1); Prothrombin Time 10.5 sec (9.8-11.6)
--- NOTE | 2017-10-25 18:02 | CT ---
EXAM DATE: 10/25/2017 5:57 PM EDT AGE/SEX: 77 years / Female INDICATIONS: Rectal bleeding today. CLINICAL DATA: This is the patient's initial encounter. Patient reports that signs and symptoms have been present for 1 day and indicates a pain score of 2/10. MEDICAL/SURGICAL HISTORY: None. None. RADIATION DOSE: 13.25 CTDI (mGy) COMPARISON: No prior exams available for comparison. TECHNIQUE: Multiple contiguous axial images were obtained through the abdomen. Images were obtained using multiple row detector helical technique. Using automated exposure control and adjustment of the mA and/or kV according to patient size, radiation dose was kept as low as reasonably achievable to o btain optimal diagnostic quality images. DICOM format image data is available electronically for rev iew and comparison. FINDINGS: Lower Lungs: The visualized lower lungs are clear. Liver: The liver has a homogeneous density without space-occupying lesion. There is no dilation of th e biliary tree. No calcified gallstones. Spleen: Homogeneous density without enlargement. Pancreas: Unremarkable without mass or calcification. Kidneys: Normal in size and shape. No evidence of mass or hydronephrosis. Adrenal Glands: Unremarkable. Aorta: The aorta and proximal iliac vessels are grossly unremarkable without aneurysmal dilation. Bowel/Mesentery: The bowel loops are grossly unremarkable. The cecum and sigmoid colon have a normal configuration. No evidence of free fluid or free air. Abdominal Wall: Intact. Retroperitoneum: No evidence of adenopathy in the retrocrural, para-aortic, or deep pelvic regions. Bladder: Contours are smooth. Reproductive Organs: No abnormal masses or calcifications seen. Inguinal: The inguinal region is unremarkable without evidence of adenopathy. Bony Structures: Degenerative changes in the posterior elements of the lumbar spine. CONCLUSION: 1. Negative noncontrast CT abdomen/pelvis. Electronically signed by: Philipp Hernandez MD 10/25/2017 6:00 PM EDT
[2017-10-25 18:10] LABS: Albumin 3.6 g/dL (3.4-5.0); Anion Gap 9 meq/L (5-15); Aspartate Aminotransferase 62 U/L (15-37); Blood Urea Nitrogen 31 mg/dL (7-18); Calcium 8.6 mg/dL (8.5-10.1); Carbon Dioxide 20.3 meq/L (21.0-32.0); Chloride 111 meq/L (98-107); Glomerular Filtration Rate 26 mL/min (>89); Glucose,Random 90 mg/dL (74-106); Lipase 238 U/L (73-393); Potassium 5.2 meq/L (3.5-5.1); Sodium 140 meq/L (136-145)
[2017-10-25 18:12] LABS: Alanine Aminotransferase 61 U/L (10-53)
[2017-10-25 18:14] LABS: Alkaline Phosphatase 201 U/L (45-117); Total Protein 7.9 g/dL (6.4-8.2)
[2017-10-25] MEDS ORDERED: Carboxymethylcellulose 0.5% Opth Drops 15 ML Bottle EACH EYE PRN (18:49)
[2017-10-25] MEDS ORDERED: Acetaminophen 325 MG Tablet PO PRN (18:49)
[2017-10-25] MEDS: Pantoprazole Inj 40 MG Vial IV.PUSH SCH (19:44)
[2017-10-25] MEDS: Dextrose 5%/NaCl 0.45% Inj 1,000 ML IV.CONT SCH (19:44)
--- NOTE | 2017-10-25 20:53 | P.HPIM ---
History of Present Illness Primary Care Physician: Todd Marquez History of Present Illness: 77 y/o female with a history of HTN, DM, leukemia and gerd presented to the ED with complains of bright red blood when using the bathroom. She states was not having a bowel movement when this happened but has had dark stools prior a few weeks ago. Denies taking any blood thinners. She also denies any abdominal pain , chest pain, sob, fever, dizziness or weakness. Inpatient Certification: I certify that the inpatient services were ordered in accordance with Medicare regulations governing the order. This includes certification that hospital inpatient services are reasonable and necessary and in the case of services not specified as inpatient-only under 42 CFR 419.22(n), that they are appropriately provided as inpatient services in accordance to with the 2-midnight benchmark under 43 CFR 412.3(e) Estimated Total Length of Stay (Days): 2 Plans for Post Hospital Care: Not yet determined Review of Systems All other systems reviewed negative except as stated in HPI [facility] - History History Provided By: Patient - Medical History Medical History: Medical History (Last Updated 10/25/17 @ 22:19 by Raj Blancas RN) Diabetes GERD (gastroesophageal reflux disease) HTN (hypertension) Incontinence Leukemia - Surgical History Surgical History: Surgical History (Last Updated 10/25/17 @ 17:04 by Bharati Paula RN) S/P surgical manipulation of ankle joint - Family History Family History: Family History (Last Updated 10/25/17 @ 22:57 by GIANNA Quintero) Other Family history normal - Tobacco History Second Hand Smoke Exposure: No Smoking Status: Never smoker - Alcohol History How Often Do You Have a Drink Containing Alcohol: Never - Substance Use History Substance History: No History of Abuse - Travel History Recent Travel in the [place] Within the Last 8 Weeks: No Recent Travel Out of the Country Within the Last 8 Weeks: No - Immunization History Tetanus Immunization: Unsure Hx Influenza Vaccine This Season: Yes Medications and Allergies Active Medications: Active Medications Acetaminophen (Tylenol) 650 mg PO Q4H PRN PRN Reason: Temp > 100.4 Amlodipine Besylate (Norvasc) 10 mg PO DAILY [facility] Artificial Tears (Refresh Tears 0.5% Opth Drops) 2 drop EACH EYE Q2H PRN PRN Reason: Dry Eye(S) Brimonidine Tartrate (Alphagan 0.2% Opth Drops) 1 drops EACH EYE BID [facility] Clonidine HCl (Catapres) 0.1 mg PO Q6H PRN PRN Reason: SBP> OR = 180, DBP> OR = 100 Dextrose/Sodium Chloride (D5w/1/2 Ns Inj) 1,000 mls @ 100 mls/hr IV.CONT .Q10H [facility] Last Admin: 10/25/17 19:44 Dose: 100 mls/hr Latanoprost (Xalatan 0.005% Opth Drops) 1 drop RIGHT EYE QPM [facility] Ondansetron HCl (Zofran Inj) 4 mg IV.PUSH Q6H PRN PRN Reason: NAUSEA OR VOMITING Pantoprazole Sodium (Protonix Inj) 40 mg IV.PUSH Q12H [facility] Last Admin: 10/25/17 19:44 Dose: 40 mg Sodium Chloride (Ns Flush) 2 ml IV.FLUSH PRN PRN PRN Reason: FLUSH AFTER USING IV ACCESS Allergies Allergy/AdvReac Type Severity Reaction Status Date / Time No Known Allergies Unknown Uncoded 03/08/17 10:44 Home Medications Medication Instructions Recorded Confirmed Type amlodipine 10 mg PO DAILY 10/25/17 10/25/17 History brimonidine 1 drp OPHTHALMIC (EYE) BID 10/25/17 10/25/17 History carboxymethylcellulose sodium 2 drp OPHTHALMIC (EYE) Q2-4H PRN 10/25/17 History [Refresh Tears] latanoprost 1 drp RIGHT EYE QPM 10/25/17 10/25/17 History Exam Vital signs: Vital Signs 10/25/17 16:31 10/25/17 17:01 10/25/17 19:11 Temperature 97.5 F L Pulse Rate 71 68 73 Respiratory Rate 20 16 18 Blood Pressure 184/72 H 176/92 H 141/63 H Pulse Oximetry 98 98 100 10/25/17 19:12 10/25/17 19:13 Temperature Pulse Rate Respiratory Rate Blood Pressure Pulse Oximetry 100 100 Intake & Output 10/25/17 10/25/17 10/26/17 06:59 18:59 06:59 Intake Total 1000 / 1000 Balance 1000 / 1000 Weight 63.503 kg Intake: IV 1000 / 1000 NS Inj 1,000 ML @ 125 mls/hr IV 1000 / 1000 .CONT .Q8H [facility] Rx#:[id number] Narrative: GENERAL: This is a well-nourished, well-developed patient, in no apparent distress. SKIN: Dry, Warm and intact CARDIOVASCULAR: Regular rate and rhythm without murmurs, gallops, or rubs. RESPIRATORY: Clear to auscultation. Breath sounds equal bilaterally. No wheezes , rales, or rhonchi. GASTROINTESTINAL: Abdomen soft, non-tender, nondistended. Normal active bowel sounds MUSCULOSKELETAL: Extremities without clubbing, cyanosis, or edema. NEURO: Alert & Oriented x4 to person, place, time, situation. Moves all ext x4 Results - Labs CBC & Chem 7: 10/25/17 17:10 10/25/17 17:10 Labs: Short CBC 10/25/17 Range/Units 17:10 WBC 3.1 L (4.0-11.0) th/mm3 Hgb 10.4 L (11.6-15.3) gm/dL Hct 30.7 L (35.0-46.0) % Plt Count 156 (150-450) th/mm3 BMP 10/25/17 17:10 Sodium 140 Potassium 5.2 H Chloride 111 H Carbon Dioxide 20.3 L BUN 31 H Creatinine 1.86 H Calcium 8.6 Liver Function 10/25/17 Range/Units 17:10 Total Bilirubin 0.4 (0.2-1.0) mg/dL AST 62 H (15-37) U/L ALT 61 H (10-53) U/L Alkaline Phosphatase 201 H (45-117) U/L Albumin 3.6 (3.4-5.0) g/dL - Imaging Impressions Abdomen/Pelvis CT 10/25/17 16:52 CONCLUSION: 1. Negative noncontrast CT abdomen/pelvis. Caprini VTE Risk Assessment Caprini VTE Risk Assessment: No/Low Risk (score <= 1) Caprini Risk Assessment Model: Point Value = 1 Point Value = 2 Point Value = 3 Point Value = 5 Age 41-60 Minor surgery BMI > 25 kg/m2 Swollen legs Varicose veins or History of unexplained or recurrent spontaneous Oral contraceptives or hormone replacement Sepsis (< 1 month) Serious lung disease, including pneumonia (< 1 month) Abnormal pulmonary function Acute myocardial infarction Congestive heart failure (< 1 month) History of inflammatory bowel disease Medical patient at bed rest Age 61-74 Arthroscopic surgery Major open surgery (> 45 min) Laparoscopic surgery (> 45 min) Malignancy Confined to bed (> 72 hours) Immobilizing plaster cast Central venous access Age >= 75 History of VTE Family history of VTE Factor V Leiden Prothrombin [id number] Lupus anticoagulant Anticardiolipin antibodies Elevated serum homocysteine Heparin-induced thrombocytopenia Other congenital or acquired thrombophilia Stroke (< 1 month) Elective arthroplasty Hip, pelvis, or leg fracture Acute spinal cord injury (< 1 month) Prophylaxis Regimen: Total Risk Factor Score Risk Level Prophylaxis Regimen 0-1 Low Early ambulation 2 Moderate Order ONE of the following: *Sequential Compression Device (SCD) *Heparin 5000 units SQ BID 3-4 Higher Order ONE of the following medications: *Heparin 5000 units SQ TID *Enoxaparin/Lovenox 40 mg SQ daily (WT < 150 kg, CrCl > 30 mL/min) *Enoxaparin/Lovenox 30 mg SQ daily (WT < 150 kg, CrCl > 10-29 mL/min) *Enoxaparin/Lovenox 30 mg SQ BID (WT < 150 kg, CrCl > 30 mL/min) AND/OR *Sequential Compression Device (SCD) 5 or more Highest Order ONE of the following medications: *Heparin 5000 units SQ TID (Preferred with Epidurals) *Enoxaparin/Lovenox 40 mg SQ daily (WT < 150 kg, CrCl > 30 mL/min) *Enoxaparin/Lovenox 30 mg SQ daily (WT < 150 kg, CrCl > 10-29 mL/min) *Enoxaparin/Lovenox 30 mg SQ BID (WT < 150 kg, CrCl > 30 mL/min) AND *Sequential Compression Device (SCD) Assessment and Plan - Plan GI Bleed Hemoglobin 10.4 Hemoccult positive -Consult GI for evaluation -Protonix IV -NPO -Serial H&H HTN, chronic -Resume home medications, monitor vitals DM, chronic -Accu checks with SSI -Diabetic diet when no longer NPO DVT prophylaxis: SCDs, no chemical due to bleeding Discussed Condition With: Patient and RN
--- NOTE | 2017-10-25 22:06 | US ---
EXAM DATE: 10/25/2017 8:55 PM EDT AGE/SEX: 77 years / Female INDICATIONS: Right leg swelling. CLINICAL DATA: This is the patient's initial encounter. Patient reports that signs and symptoms have been present for 2 months and indicates a pain score of 0/10. MEDICAL/SURGICAL HISTORY: Diabetes. Gastroesophageal reflux disease. Hypertension. Leukemia. . Ankle. COMPARISON: No prior exams available for comparison. TECHNIQUE: Venous ultrasound of both lower extremities was performed from the inguinal ligament to t he proximal calf. Real-time, color Doppler and spectral tracing, compression and augmentation techni ques were used. FINDINGS: Normal compression of the deep venous system from the inguinal region to the proximal calf . No echogenic clot is seen. Normal response of the venous system to augmentation and respiration. CONCLUSION: 1. The study is negative for lower extremity deep venous thrombosis. Electronically signed by: Philipp Hernandez MD 10/25/2017 10:04 PM EDT
[2017-10-25] MEDS: Brimonidine 0.2% Opth Drops 5 ML Bottle EACH EYE SCH (22:34)
[2017-10-25] MEDS ORDERED: Dextrose 50% in Water 50 ML Vial IV.PUSH PRN (22:55)
[2017-10-26 00:05] LABS: Hemoglobin 9.7 gm/dL (11.6-15.3)
[2017-10-26] MEDS: Dextrose 5%/NaCl 0.45% Inj 1,000 ML IV.CONT SCH ×2 (08:10→18:06)
[2017-10-26] MEDS: Insulin NovoLOG Aspart Correctional Sugar Inj SQ SCH ×4 (08:11→23:10)
[2017-10-26 08:48] LABS: Hematocrit 32.2 % (35.0-46.0); Hemoglobin 10.8 gm/dL (11.6-15.3); Mean Corpuscular HGB Conc 33.6 % (32.0-36.0); Mean Corpuscular Hemoglobin 35.8 pg (27.0-34.0); Mean Corpuscular Volume 106.5 fL (80.0-100.0); Mean Platelet Volume 8.2 fL (7.0-11.0); Platelet Count 150 th/mm3 (150-450); Red Blood Count 3.03 mil/mm3 (4.00-5.30); Red Cell Distribution Width 13.5 % (11.6-17.2); White Blood Count 2.1 th/mm3 (4.0-11.0)
[2017-10-26 09:09] LABS: Alanine Aminotransferase 53 U/L (10-53); Albumin 3.2 g/dL (3.4-5.0); Alkaline Phosphatase 179 U/L (45-117); Anion Gap 9 meq/L (5-15); Aspartate Aminotransferase 49 U/L (15-37); Blood Urea Nitrogen 19 mg/dL (7-18); Calcium 8.6 mg/dL (8.5-10.1); Carbon Dioxide 21.1 meq/L (21.0-32.0); Chloride 116 meq/L (98-107); Glomerular Filtration Rate 39 mL/min (>89); Glucose,Random 98 mg/dL (74-106); Lipase 168 U/L (73-393); Potassium 4.4 meq/L (3.5-5.1); Sodium 146 meq/L (136-145); Total Protein 7.4 g/dL (6.4-8.2)
[2017-10-26 10:34] LABS: Eosinophils 8 % (0-4); Lymphocytes 55 % (9-44); Metamyelocytes 1 % (0-1); Monocytes 11 % (0-8)
[2017-10-26 10:40] LABS: Platelet Estimate Normal (Normal); Platelet Morphology Normal (Normal)
--- NOTE | 2017-10-26 10:58 | P.CONGI ---
History of Present Illness Consult date: 10/25/17 Consult reason: GI bleed Chief complaint: GI bleed History of Present Illness: This is a Nauruan-speaking 77-year-old female who presented to the emergency room according to the record with bright red blood when using the bathroom. He was also noted that she had dark stools a few weeks ago but does note that she takes vitamins and iron, and is not taking any blood thinners. I examined the patient in the emergency room and there was no obvious rectal bleeding noted. Patient states aggregating factors noted are a very small amount of blood when she is wiping vigorously. It is noted in the record patient has a history of GERD but she currently denies any dyspepsia no nausea no vomiting no dysphasia. Gastroenterology was consulted to assist for any GI bleed. Current labs show hemoglobin 10.8 patient does note a history of anemia during my exam. WBC count 2.1, PT/INR 1, bilirubin 0.4, AST 62, ALT 61, and alkaline phosphatase 201. Patient does note history of occasional diarrhea last onset was approximately a week ago after eating spicy foods. Patient states that she takes Imodium and has no other issues after 24 hours. Patient does note a history of constipation but again unknown timing. Patient notes colonoscopy and EGD 2-3 years ago but unknown timing or results but did state no known history of polyps. Patient states family history of colon cancer with a niece, unknown age timing or event. CT of the abdomen and pelvis showed no gallstones liver appearance normal and no ductal dilatation. Transmission System Operator was used for this assessment. According to the record and patient she denies any dizziness weakness or abdominal pain. Review of Systems All other systems reviewed negative except as stated in HPI [facility] - History History Provided By: Patient - Medical History Medical History: Medical History (Last Updated 10/25/17 @ 22:19 by Raj Blancas RN) Diabetes GERD (gastroesophageal reflux disease) HTN (hypertension) Incontinence Leukemia - Surgical History Surgical History: Surgical History (Last Updated 10/25/17 @ 17:04 by Bharati Paula RN) S/P surgical manipulation of ankle joint - Family History Family History: Family History (Last Updated 10/25/17 @ 22:57 by GIANNA Quintero) Other Family history normal - Tobacco History Second Hand Smoke Exposure: No Tobacco Use In Past 30 Days: No Smoking Status: Never smoker - Alcohol History How Often Do You Have a Drink Containing Alcohol: Never - Substance Use History Substance History: No History of Abuse - Travel History Recent Travel in the [place] Within the Last 8 Weeks: No Recent Travel Out of the Country Within the Last 8 Weeks: No - Immunization History Tetanus Immunization: Unsure Hx Influenza Vaccine This Season: Yes Medications and Allergies Active Medications: Active Medications Acetaminophen (Tylenol) 650 mg PO Q4H PRN PRN Reason: Temp > 100.4 Amlodipine Besylate (Norvasc) 10 mg PO DAILY [facility] Artificial Tears (Refresh Tears 0.5% Opth Drops) 2 drop EACH EYE Q2H PRN PRN Reason: Dry Eye(S) Brimonidine Tartrate (Alphagan 0.2% Opth Drops) 1 drops EACH EYE BID [facility] Last Admin: 10/25/17 22:34 Dose: Not Given Clonidine HCl (Catapres) 0.1 mg PO Q6H PRN PRN Reason: SBP> OR = 180, DBP> OR = 100 Dextrose (D50w Vial) 50 ml IV.PUSH UNSCH PRN PRN Reason: PER HYPOGLYCEMIA PROTOCOL Glucagon (Glucagon Inj) 1 mg OTHER PRN PRN PRN Reason: for Hypoglycemia Protocol Dextrose/Sodium Chloride (D5w/1/2 Ns Inj) 1,000 mls @ 100 mls/hr IV.CONT .Q10H [facility] Last Admin: 10/26/17 08:10 Dose: 100 mls/hr Insulin Aspart (Novolog Insulin Correctional Sugar Inj) 0 unit SQ ACHS [facility]; Protocol Last Admin: 10/26/17 08:11 Dose: Not Given Latanoprost (Xalatan 0.005% Opth Drops) 1 drop RIGHT EYE QPM [facility] Ondansetron HCl (Zofran Inj) 4 mg IV.PUSH Q6H PRN PRN Reason: NAUSEA OR VOMITING Pantoprazole Sodium (Protonix Inj) 40 mg IV.PUSH Q12H [facility] Last Admin: 10/25/17 19:44 Dose: 40 mg Sodium Chloride (Ns Flush) 2 ml IV.FLUSH PRN PRN PRN Reason: FLUSH AFTER USING IV ACCESS Allergies Allergy/AdvReac Type Severity Reaction Status Date / Time No Known Allergies Unknown Uncoded 03/08/17 10:44 Home Medications Medication Instructions Recorded Confirmed Type amlodipine 10 mg PO DAILY 10/25/17 10/25/17 History brimonidine 1 drp OPHTHALMIC (EYE) BID 10/25/17 10/25/17 History carboxymethylcellulose sodium 2 drp OPHTHALMIC (EYE) Q2-4H PRN 10/25/17 History [Refresh Tears] latanoprost 1 drp RIGHT EYE QPM 10/25/17 10/25/17 History Exam Vital signs: Vital Signs 10/25/17 16:31 10/25/17 17:01 10/25/17 19:11 Temperature 97.5 F L Pulse Rate 71 68 73 Respiratory Rate 20 16 18 Blood Pressure 184/72 H 176/92 H 141/63 H Pulse Oximetry 98 98 100 10/25/17 19:12 10/25/17 19:13 10/25/17 23:11 Temperature 97.8 F Pulse Rate 89 Respiratory Rate 18 Blood Pressure 131/58 L Pulse Oximetry 100 100 98 10/26/17 00:00 10/26/17 04:00 10/26/17 08:00 Temperature 97.5 F L 97.7 F 97.8 F Pulse Rate 79 79 83 Respiratory Rate 18 18 16 Blood Pressure 173/73 H 160/70 H 170/72 H Pulse Oximetry 93 L 93 L 98 Intake & Output 10/25/17 10/26/17 10/26/17 18:59 06:59 18:59 Intake Total 1999 Balance 1999 Weight 63.503 kg Intake: IV 1999 D5W/1/2 NS Inj 1,000 ML @ 100 1000 / 1000 mls/hr IV.CONT .Q10H [facility] Rx#: [id number] NS Inj 1,000 ML @ 125 mls/hr IV 1000 / 1000 .CONT .Q8H [facility] Rx#:[id number] - Constitutional no acute distress - Routine HEENT Exam Head: Present: normocephalic ENT: Present: mucous membranes moist - Routine Neck Exam Present: supple - Routine Respiratory Exam Present: accessory muscle use (No obvious shortness of breath or wheezing) - Routine Cardiovascular Exam Present: S1, S2 - Routine Abdominal Exam Present: soft (Round, active bowel sounds, no abdominal pain to light palpation) - Routine Skin Exam Present: intact - Routine Neurological Exam Present: alert (Fair historian with bit sander) Results - Labs CBC & Chem 7: 10/26/17 07:30 10/26/17 07:30 Labs: Laboratory Results - last 24 hr 10/25/17 10/25/17 10/25/17 17:10 17:10 17:10 WBC 3.1 L RBC 2.92 L Hgb 10.4 L Hct 30.7 L MCV 105.2 H MCH 35.7 H MCHC 34.0 RDW 13.7 Plt Count 156 MPV 7.8 Prelim Diff (Auto) Neut % (Auto) 32.0 Lymph % (Auto) 44.1 H [place] % (Auto) 13.1 H Eos % (Auto) 8.7 H Baso % (Auto) 2.1 H Neut # (Auto) 1.0 L Lymph # (Auto) 1.4 [place] # (Auto) 0.4 Eos # (Auto) 0.3 Baso # (Auto) 0.1 WBC Differential . Seg Neuts % (Manual) Band Neuts % (Manual) Lymphocytes % (Manual) Monocytes % (Manual) Eosinophils % (Manual) Basophils % (Manual) Metamyelocytes % (Man) Abs Neuts (Manual) Differential Comment Auto diff final Platelet Estimate Platelet Morphology PT 10.5 INR 1.0 APTT 25.3 Sodium 140 Potassium 5.2 H Chloride 111 H Carbon Dioxide 20.3 L Anion Gap 9 BUN 31 H Creatinine 1.86 H Estimated GFR 26 L POC Glucose Random Glucose 90 Calcium 8.6 Total Bilirubin 0.4 AST 62 H ALT 61 H Alkaline Phosphatase 201 H Total Protein 7.9 Albumin 3.6 Lipase 238 Blood Type Blood Type Recheck Antibody Screen 10/25/17 10/25/17 10/25/17 17:10 19:44 22:27 WBC RBC Hgb Hct MCV MCH MCHC RDW Plt Count MPV Prelim Diff (Auto) Neut % (Auto) Lymph % (Auto) [place] % (Auto) Eos % (Auto) Baso % (Auto) Neut # (Auto) Lymph # (Auto) [place] # (Auto) Eos # (Auto) Baso # (Auto) WBC Differential Seg Neuts % (Manual) Band Neuts % (Manual) Lymphocytes % (Manual) Monocytes % (Manual) Eosinophils % (Manual) Basophils % (Manual) Metamyelocytes % (Man) Abs Neuts (Manual) Differential Comment Platelet Estimate Platelet Morphology PT INR APTT Sodium Potassium Chloride Carbon Dioxide Anion Gap BUN Creatinine Estimated GFR POC Glucose 79 92 Random Glucose Calcium Total Bilirubin AST ALT Alkaline Phosphatase Total Protein Albumin Lipase Blood Type O Positive Blood Type Recheck Required Antibody Screen Negative 10/26/17 10/26/17 10/26/17 00:00 07:30 07:30 WBC 2.1 L RBC 3.03 L Hgb 9.7 L 10.8 L Hct 29.0 L 32.2 L MCV 106.5 H MCH 35.8 H MCHC 33.6 RDW 13.5 Plt Count 150 MPV 8.2 Prelim Diff (Auto) Manual diff required Neut % (Auto) Lymph % (Auto) [place] % (Auto) Eos % (Auto) Baso % (Auto) Neut # (Auto) Lymph # (Auto) [place] # (Auto) Eos # (Auto) Baso # (Auto) WBC Differential Manual diff final Seg Neuts % (Manual) 20 Band Neuts % (Manual) 3 Lymphocytes % (Manual) 55 H Monocytes % (Manual) 11 H Eosinophils % (Manual) 8 H Basophils % (Manual) 2 Metamyelocytes % (Man) 1 Abs Neuts (Manual) 0.5 L* Differential Comment . Platelet Estimate Normal Platelet Morphology Normal PT INR APTT Sodium 146 H Potassium 4.4 D Chloride 116 H Carbon Dioxide 21.1 Anion Gap 9 BUN 19 H Creatinine 1.32 H Estimated GFR 39 L POC Glucose Random Glucose 98 Calcium 8.6 Total Bilirubin 0.5 AST 49 H ALT 53 Alkaline Phosphatase 179 H Total Protein 7.4 Albumin 3.2 L Lipase 168 Blood Type Blood Type Recheck Antibody Screen 10/26/17 07:54 WBC RBC Hgb Hct MCV MCH MCHC RDW Plt Count MPV Prelim Diff (Auto) Neut % (Auto) Lymph % (Auto) [place] % (Auto) Eos % (Auto) Baso % (Auto) Neut # (Auto) Lymph # (Auto) [place] # (Auto) Eos # (Auto) Baso # (Auto) WBC Differential Seg Neuts % (Manual) Band Neuts % (Manual) Lymphocytes % (Manual) Monocytes % (Manual) Eosinophils % (Manual) Basophils % (Manual) Metamyelocytes % (Man) Abs Neuts (Manual) Differential Comment Platelet Estimate Platelet Morphology PT INR APTT Sodium Potassium Chloride Carbon Dioxide Anion Gap BUN Creatinine Estimated GFR POC Glucose 98 Random Glucose Calcium Total Bilirubin AST ALT Alkaline Phosphatase Total Protein Albumin Lipase Blood Type Blood Type Recheck Antibody Screen - Imaging Impressions Venous Doppler Study 10/25/17 00:00 CONCLUSION: 1. The study is negative for lower extremity deep venous thrombosis. Abdomen/Pelvis CT 10/25/17 16:52 CONCLUSION: 1. Negative noncontrast CT abdomen/pelvis. Assessment and Plan (1) Anemia Status: Acute Code(s): D64.9 - Anemia, unspecified (2) History of gastroesophageal reflux (GERD) Status: Acute Code(s): Z87.19 - Personal history of other diseases of the digestive system - Plan Nauruan speaking female, bit sander in room. Anemia no obvious bleeding, checked for any rectal bleeding none at this time patient does note when vigorously wiping she does note a blood streak on her paper which could be related to hemorrhoids. Patient did note dark stools a couple weeks ago but she does take vitamins and iron, we need to evaluate , possible melena stools. Current labs hemoglobin 10.8 INR 1 Normal bilirubin is 0.4 AST 62 ALT 61, mild minimal increase could be related to dietary foods. Abdominal pelvic CT showed no dilation common bile duct no gallstones and liver normal. Otherwise unremarkable History of GERD patient has been placed on PPI. Patient currently denies any nausea vomiting dyspepsia or dysphasia. History of constipation, patient notes occasional which also could contribute to rectal blood seen when wiping. Family history colon cancer positive for niece unknown age or event, last EGD colonoscopy 2-3 years ago no history of polyps to patient's knowledge. Diarrhea occasional last episode noted last week after eating spicy foods patient states she takes Imodium and mid is effective. Plan Diet clear liquids for today Consent for EGD/colonoscopy in the a.m. N.p.o. at midnight Mag citrate and Dulcolax Hold any blood thinners Monitor labs with special attention to hemoglobin Monitor for any rectal bleeding If diarrhea is noted we will check for pathogens and C. difficile. PPI Bowel regimen Further recommendations to follow Patient was seen per myself and Dr. Jaimes, note was written on his behalf
[2017-10-26] MEDS: amLODIPine 10 MG Tablet PO SCH (11:23)
[2017-10-26] MEDS: Pantoprazole Inj 40 MG Vial IV.PUSH SCH ×2 (11:24→23:10)
[2017-10-26] MEDS: Brimonidine 0.2% Opth Drops 5 ML Bottle EACH EYE SCH ×2 (11:24→23:10)
[2017-10-26] MEDS ORDERED: Magnesium Citrate Liq 300 ML Bottle PO ONE ×2 (16:00→17:00)
--- NOTE | 2017-10-26 16:37 | P.PN ---
Subjective Interval history: Patient is seen lying in bed. She is primarily Russian-speaking, refuses rn wound care and prefers family member who is bilingual. Patient denies any chest pain or shortness of breath. She does continue to have bloody stools. No coffee-ground emesis. She is tolerating clear liquids. Physical Exam Vital signs: Vital Signs 10/25/17 16:31 10/25/17 17:01 10/25/17 19:11 Temperature 97.5 F L Pulse Rate 71 68 73 Respiratory Rate 20 16 18 Blood Pressure 184/72 H 176/92 H 141/63 H Pulse Oximetry 98 98 100 10/25/17 19:12 10/25/17 19:13 10/25/17 23:11 Temperature 97.8 F Pulse Rate 89 Respiratory Rate 18 Blood Pressure 131/58 L Pulse Oximetry 100 100 98 10/26/17 00:00 10/26/17 04:00 10/26/17 08:00 Temperature 97.5 F L 97.7 F 97.8 F Pulse Rate 79 79 83 Respiratory Rate 18 18 16 Blood Pressure 173/73 H 160/70 H 170/72 H Pulse Oximetry 93 L 93 L 98 10/26/17 16:00 Temperature 97.6 F Pulse Rate 78 Respiratory Rate 16 Blood Pressure 134/63 Pulse Oximetry 99 Intake & Output 10/25/17 10/26/17 10/26/17 18:59 06:59 18:59 Intake Total 1999 Balance 1999 Weight 63.503 kg Intake: IV 1999 D5W/1/2 NS Inj 1,000 ML @ 100 1000 / 1000 mls/hr IV.CONT .Q10H [facility] Rx#: [id number] NS Inj 1,000 ML @ 125 mls/hr IV 1000 / 1000 .CONT .Q8H [facility] Rx#:[id number] Other: Date of Last Bowel Movement 10/26/17 Narrative: GENERAL: Well-nourished, well-developed adult female in no obvious distress. SKIN: Warm and dry. HEAD: Atraumatic. Normocephalic. CARDIOVASCULAR: Regular rate and rhythm. RESPIRATORY: No accessory muscle use. Clear to auscultation. Breath sounds equal bilaterally. GASTROINTESTINAL: Abdomen soft, non-tender, non-distended. Positive bowel sounds. MUSCULOSKELETAL: Extremities without clubbing, cyanosis, or edema. No obvious deformities. NEUROLOGICAL: Awake and alert. No obvious cranial nerve deficits. Motor grossly within normal limits. Normal speech. PSYCHIATRIC: Appropriate mood and affect; insight and judgment good. Results - Labs CBC & Chem 7: 10/26/17 07:30 10/26/17 07:30 Laboratory Results - last 24 hr 10/25/17 10/25/17 10/25/17 17:10 17:10 17:10 WBC 3.1 L RBC 2.92 L Hgb 10.4 L Hct 30.7 L MCV 105.2 H MCH 35.7 H MCHC 34.0 RDW 13.7 Plt Count 156 MPV 7.8 Prelim Diff (Auto) Neut % (Auto) 32.0 Lymph % (Auto) 44.1 H [place] % (Auto) 13.1 H Eos % (Auto) 8.7 H Baso % (Auto) 2.1 H Neut # (Auto) 1.0 L Lymph # (Auto) 1.4 [place] # (Auto) 0.4 Eos # (Auto) 0.3 Baso # (Auto) 0.1 WBC Differential . Seg Neuts % (Manual) Band Neuts % (Manual) Lymphocytes % (Manual) Monocytes % (Manual) Eosinophils % (Manual) Basophils % (Manual) Metamyelocytes % (Man) Abs Neuts (Manual) Differential Comment Auto diff final Platelet Estimate Platelet Morphology PT 10.5 INR 1.0 APTT 25.3 Sodium 140 Potassium 5.2 H Chloride 111 H Carbon Dioxide 20.3 L Anion Gap 9 BUN 31 H Creatinine 1.86 H Estimated GFR 26 L POC Glucose Random Glucose 90 Calcium 8.6 Total Bilirubin 0.4 AST 62 H ALT 61 H Alkaline Phosphatase 201 H Total Protein 7.9 Albumin 3.6 Lipase 238 Blood Type Blood Type Recheck Antibody Screen 10/25/17 10/25/17 10/25/17 17:10 19:44 22:27 WBC RBC Hgb Hct MCV MCH MCHC RDW Plt Count MPV Prelim Diff (Auto) Neut % (Auto) Lymph % (Auto) [place] % (Auto) Eos % (Auto) Baso % (Auto) Neut # (Auto) Lymph # (Auto) [place] # (Auto) Eos # (Auto) Baso # (Auto) WBC Differential Seg Neuts % (Manual) Band Neuts % (Manual) Lymphocytes % (Manual) Monocytes % (Manual) Eosinophils % (Manual) Basophils % (Manual) Metamyelocytes % (Man) Abs Neuts (Manual) Differential Comment Platelet Estimate Platelet Morphology PT INR APTT Sodium Potassium Chloride Carbon Dioxide Anion Gap BUN Creatinine Estimated GFR POC Glucose 79 92 Random Glucose Calcium Total Bilirubin AST ALT Alkaline Phosphatase Total Protein Albumin Lipase Blood Type O Positive Blood Type Recheck Required Antibody Screen Negative 10/26/17 10/26/17 10/26/17 00:00 07:30 07:30 WBC 2.1 L RBC 3.03 L Hgb 9.7 L 10.8 L Hct 29.0 L 32.2 L MCV 106.5 H MCH 35.8 H MCHC 33.6 RDW 13.5 Plt Count 150 MPV 8.2 Prelim Diff (Auto) Manual diff required Neut % (Auto) Lymph % (Auto) [place] % (Auto) Eos % (Auto) Baso % (Auto) Neut # (Auto) Lymph # (Auto) [place] # (Auto) Eos # (Auto) Baso # (Auto) WBC Differential Manual diff final Seg Neuts % (Manual) 20 Band Neuts % (Manual) 3 Lymphocytes % (Manual) 55 H Monocytes % (Manual) 11 H Eosinophils % (Manual) 8 H Basophils % (Manual) 2 Metamyelocytes % (Man) 1 Abs Neuts (Manual) 0.5 L* Differential Comment . Platelet Estimate Normal Platelet Morphology Normal PT INR APTT Sodium 146 H Potassium 4.4 D Chloride 116 H Carbon Dioxide 21.1 Anion Gap 9 BUN 19 H Creatinine 1.32 H Estimated GFR 39 L POC Glucose Random Glucose 98 Calcium 8.6 Total Bilirubin 0.5 AST 49 H ALT 53 Alkaline Phosphatase 179 H Total Protein 7.4 Albumin 3.2 L Lipase 168 Blood Type Blood Type Recheck Antibody Screen 10/26/17 10/26/17 07:54 12:32 WBC RBC Hgb Hct MCV MCH MCHC RDW Plt Count MPV Prelim Diff (Auto) Neut % (Auto) Lymph % (Auto) [place] % (Auto) Eos % (Auto) Baso % (Auto) Neut # (Auto) Lymph # (Auto) [place] # (Auto) Eos # (Auto) Baso # (Auto) WBC Differential Seg Neuts % (Manual) Band Neuts % (Manual) Lymphocytes % (Manual) Monocytes % (Manual) Eosinophils % (Manual) Basophils % (Manual) Metamyelocytes % (Man) Abs Neuts (Manual) Differential Comment Platelet Estimate Platelet Morphology PT INR APTT Sodium Potassium Chloride Carbon Dioxide Anion Gap BUN Creatinine Estimated GFR POC Glucose 98 125 H Random Glucose Calcium Total Bilirubin AST ALT Alkaline Phosphatase Total Protein Albumin Lipase Blood Type Blood Type Recheck Antibody Screen - Imaging Impressions Venous Doppler Study 10/25/17 00:00 CONCLUSION: 1. The study is negative for lower extremity deep venous thrombosis. Abdomen/Pelvis CT 10/25/17 16:52 CONCLUSION: 1. Negative noncontrast CT abdomen/pelvis. Assessment and Plan - Plan Patient is a 77-year-old female with a past medical history of hypertension, diabetes, leukemia and GERD who presented to the emergency room with complaints of bloody stool. GI bleed -Hemoglobin 10.4 at admit now 9.7; Hemoccult positive -PPI started -Serial H&H -GI consulted; plan for EGD/colonoscopy on 10/27. N.p.o. after midnight. Clear liquids now appear HTN, chronic -Resume home medications, monitor vitals DM, chronic -Accu checks with SSI -Diabetic diet when no longer NPO DVT prophylaxis: SCDs, no chemical due to bleeding
[2017-10-26] MEDS ORDERED: Latanoprost 0.005% Opth Drops 2.5 ML Bottle RIGHT EYE SCH (18:00)
[2017-10-27] MEDS: Dextrose 5%/NaCl 0.45% Inj 1,000 ML IV.CONT SCH (05:34)
[2017-10-27 08:25] LABS: Baso # (Auto) 0.1 th/mm3 (0.0-0.2); Baso % (Auto) 2.8 % (0.0-2.0); Eos # (Auto) 0.2 th/mm3 (0.0-0.4); Eos % (Auto) 9.5 % (0.0-4.0); Hematocrit 34.1 % (35.0-46.0); Hemoglobin 11.4 gm/dL (11.6-15.3); Lymph # (Auto) 1.1 th/mm3 (1.0-4.8); Mean Corpuscular HGB Conc 33.3 % (32.0-36.0); Mean Corpuscular Hemoglobin 35.8 pg (27.0-34.0); Mean Corpuscular Volume 107.3 fL (80.0-100.0); Mean Platelet Volume 8.3 fL (7.0-11.0); Mono # (Auto) 0.4 th/mm3 (0.0-0.9); Mono % (Auto) 16.4 % (0.0-8.0); Neut # (Auto) 0.7 th/mm3 (1.8-7.7); Neut % (Auto) 27.3 % (16.0-70.0); Platelet Count 181 th/mm3 (150-450); Red Blood Count 3.18 mil/mm3 (4.00-5.30); Red Cell Distribution Width 13.5 % (11.6-17.2); White Blood Count 2.4 th/mm3 (4.0-11.0)
--- NOTE | 2017-10-27 08:35 | P.PN ---
Subjective Interval history: Duplicate document; please refer to other progress note dated 10/27/17 Physical Exam Vital signs: Vital Signs 10/26/17 16:00 10/26/17 20:00 10/26/17 23:56 Temperature 97.6 F 98.1 F Pulse Rate 78 74 46 L Respiratory Rate 16 19 19 Blood Pressure 134/63 135/60 113/53 L Pulse Oximetry 99 94 L 96 10/27/17 03:52 10/27/17 08:00 Temperature 97.9 F 98.5 F Pulse Rate 91 H 65 Respiratory Rate 19 20 Blood Pressure 154/58 H 155/68 H Pulse Oximetry 95 97 Intake & Output 10/26/17 10/27/17 10/27/17 18:59 06:59 18:59 Intake Total 1000 / 1000 1000 / 1000 Output Total Balance 999 / 999 1000 / 1000 Intake: IV 1000 / 1000 1000 / 1000 D5W/1/2 NS Inj 1,000 ML @ 100 1000 / 1000 1000 / 1000 mls/hr IV.CONT .Q10H [facility] Rx#: [id number] Output: Stool Other: Date of Last Bowel Movement 10/26/17 Narrative: GENERAL: Well-nourished, well-developed adult female in no obvious distress. SKIN: Warm and dry. HEAD: Atraumatic. Normocephalic. CARDIOVASCULAR: Regular rate and rhythm. RESPIRATORY: No accessory muscle use. Clear to auscultation. Breath sounds equal bilaterally. GASTROINTESTINAL: Abdomen soft, non-tender, non-distended. Positive bowel sounds. MUSCULOSKELETAL: Extremities without clubbing, cyanosis, or edema. No obvious deformities. NEUROLOGICAL: Awake and alert. No obvious cranial nerve deficits. Motor grossly within normal limits. Normal speech. PSYCHIATRIC: Appropriate mood and affect; insight and judgment good. Results - Labs CBC & Chem 7: 10/27/17 07:57 10/27/17 07:57 Laboratory Results - last 24 hr 10/26/17 10/26/17 10/26/17 07:30 07:30 12:32 WBC 2.1 L RBC 3.03 L Hgb 10.8 L Hct 32.2 L MCV 106.5 H MCH 35.8 H MCHC 33.6 RDW 13.5 Plt Count 150 MPV 8.2 Prelim Diff (Auto) Manual diff required WBC Differential Manual diff final Seg Neuts % (Manual) 20 Band Neuts % (Manual) 3 Lymphocytes % (Manual) 55 H Monocytes % (Manual) 11 H Eosinophils % (Manual) 8 H Basophils % (Manual) 2 Metamyelocytes % (Man) 1 Abs Neuts (Manual) 0.5 L* Differential Comment . Platelet Estimate Normal Platelet Morphology Normal Sodium 146 H Potassium 4.4 D Chloride 116 H Carbon Dioxide 21.1 Anion Gap 9 BUN 19 H Creatinine 1.32 H Estimated GFR 39 L POC Glucose 125 H Random Glucose 98 Calcium 8.6 Total Bilirubin 0.5 AST 49 H ALT 53 Alkaline Phosphatase 179 H Total Protein 7.4 Albumin 3.2 L Lipase 168 10/26/17 10/26/17 17:57 23:09 WBC RBC Hgb Hct MCV MCH MCHC RDW Plt Count MPV Prelim Diff (Auto) WBC Differential Seg Neuts % (Manual) Band Neuts % (Manual) Lymphocytes % (Manual) Monocytes % (Manual) Eosinophils % (Manual) Basophils % (Manual) Metamyelocytes % (Man) Abs Neuts (Manual) Differential Comment Platelet Estimate Platelet Morphology Sodium Potassium Chloride Carbon Dioxide Anion Gap BUN Creatinine Estimated GFR POC Glucose 88 114 H Random Glucose Calcium Total Bilirubin AST ALT Alkaline Phosphatase Total Protein Albumin Lipase Assessment and Plan - Plan Patient is a 77-year-old female with a past medical history of hypertension, diabetes, leukemia and GERD who presented to the emergency room with complaints of bloody stool. GI bleed -Hemoglobin 10.4 --> 9.7 ---10.8; Hemoccult positive -PPI started -Serial H&H -GI consulted; plan for EGD/colonoscopy on 10/27. N.p.o. after midnight. HTN, chronic -Resume home medications, monitor vitals DM, chronic -Accu checks with SSI -Diabetic diet when no longer NPO DVT prophylaxis: SCDs, no chemical due to bleeding
[2017-10-27 08:56] LABS: Alanine Aminotransferase 55 U/L (10-53); Alkaline Phosphatase 190 U/L (45-117); Total Protein 7.9 g/dL (6.4-8.2)
[2017-10-27 09:05] LABS: Albumin 3.4 g/dL (3.4-5.0); Anion Gap 11 meq/L (5-15); Aspartate Aminotransferase 53 U/L (15-37); Blood Urea Nitrogen 13 mg/dL (7-18); Calcium 8.9 mg/dL (8.5-10.1); Carbon Dioxide 20.4 meq/L (21.0-32.0); Chloride 115 meq/L (98-107); Glomerular Filtration Rate 37 mL/min (>89); Glucose,Random 109 mg/dL (74-106); Potassium 3.9 meq/L (3.5-5.1); Sodium 146 meq/L (136-145)
[2017-10-27] MEDS: Insulin NovoLOG Aspart Correctional Sugar Inj SQ SCH (09:10)
[2017-10-27] MEDS: Brimonidine 0.2% Opth Drops 5 ML Bottle EACH EYE SCH (09:14)
[2017-10-27] MEDS: Pantoprazole Inj 40 MG Vial IV.PUSH SCH (09:15)
[2017-10-27] MEDS: amLODIPine 10 MG Tablet PO SCH (09:15)
[2017-10-27 09:28] LABS: Eosinophils 10 % (0-4); Lymphocytes 52 % (9-44); Monocytes 7 % (0-8)
[2017-10-27 09:32] LABS: Platelet Estimate Normal (Normal); Platelet Morphology Normal (Normal)
--- NOTE | 2017-10-27 11:20 | P.PCN ---
Date of procedure: 10/27/17 Pre-op diagnosis: Anemia Procedure: PROCEDURE PERFORMED EGD with biopsy followed by colonoscopy INDICATION FOR PROCEDURE Anemia PROCEDURE: The procedure, risks and benefits were discussed with Patient/POA and informed consent was obtained. Anesthesia sedated Patient with Diprivan. Patient was placed in the left lateral decubitus position. EGD: The Pentax videoscope was introduced through the oropharynx and advanced to the second portion of the duodenum under direct visualization. Retroflexion was performed in the stomach. FINDINGS: The esophagus this was normal The stomach there was a small hiatal hernia and there was some patchy erythema in the antrum this was biopsied otherwise unremarkable The duodenum this was normal random biopsies were taken for further evaluation Colonoscopy: The Pentax videoscope was introduced through the rectum and advanced to cecum where the ileocecal valve and appendiceal orifice were identified. Retroflexion was performed in the rectum. Colonic prep was good FINDINGS: Colonic withdrawal time greater than 6 minutes. As the scope was slowly withdrawn colonic mucosa was carefully inspected colonic mucosa appeared to be unremarkable and within normal limits all the way through retroflexion did reveal small to medium size internal hemorrhoids rectal examination otherwise unremarkable ESTIMATED BLOOD LOSS: None SPECIMENS REMOVED: Gastric and duodenal biopsies COMPLICATIONS: None IMPRESSION: Small hiatal hernia Mild gastritis Small internal hemorrhoids PLAN: Await biopsies Advance diet Anemia is probably multifactorial with some chronic renal insufficiency chronic disease and underlying leukemia with no obvious evidence of any blood or bleeding Not much to add at this point from a GI perspective we will sign off Patient follow-up with GI post discharge Anesthesia: MAC Surgeon: Amol Neumann Condition: stable Disposition: floor
[2017-10-27] MEDS ORDERED: Lidocaine PF 1% Inj 5 ML Syringe INFILTRATN ONE (12:00)
[2017-10-27 12:22] VITALS: BP 145/63; RESP 20; TEMP 98.1; O2SAT 98
--- NOTE | 2017-10-27 12:48 | P.PN ---
Subjective Interval history: Patient is seen sitting in bed post colonoscopy. Refuses offer of translation service. Nepali-speaking family member in room. Patient tells me that she feels well and would like to go home. No shortness of breath or chest pain. No nausea or vomiting. Physical Exam Vital signs: Vital Signs 10/26/17 16:00 10/26/17 20:00 10/26/17 23:56 Temperature 97.6 F 98.1 F Pulse Rate 78 74 46 L Respiratory Rate Blood Pressure 134/63 135/60 113/53 L Pulse Oximetry 99 94 L 96 10/27/17 02:30 10/27/17 03:52 10/27/17 08:00 Temperature 97.9 F 98.5 F Pulse Rate 57 L 91 H 65 Respiratory Rate 19 20 Blood Pressure 154/58 H 155/68 H Pulse Oximetry 95 97 10/27/17 11:20 10/27/17 12:00 Temperature 97.5 F L 98.1 F Pulse Rate 64 67 Respiratory Rate 18 20 Blood Pressure 104/99 H 145/63 H Pulse Oximetry 99 98 Intake & Output 10/26/17 10/27/17 10/27/17 18:59 06:59 18:59 Intake Total 1000 / 1000 1000 / 1000 Output Total Balance 999 / 999 1000 / 1000 Intake: IV 1000 / 1000 1000 / 1000 D5W/1/2 NS Inj 1,000 ML @ 100 1000 / 1000 1000 / 1000 mls/hr IV.CONT .Q10H [facility] Rx#: [id number] Output: Stool Other: Date of Last Bowel Movement 10/26/17 # Bowel Movements 2 Narrative: GENERAL: Well-nourished, well-developed adult female in no obvious distress. SKIN: Warm and dry. HEAD: Atraumatic. Normocephalic. CARDIOVASCULAR: Regular rate and rhythm. RESPIRATORY: No accessory muscle use. Clear to auscultation. Breath sounds equal bilaterally. GASTROINTESTINAL: Abdomen soft, non-tender, non-distended. Positive bowel sounds. MUSCULOSKELETAL: Extremities without clubbing, cyanosis, or edema. No obvious deformities. NEUROLOGICAL: Awake and alert. No obvious cranial nerve deficits. Motor grossly within normal limits. Normal speech. PSYCHIATRIC: Appropriate mood and affect; insight and judgment good. Results - Labs CBC & Chem 7: 10/27/17 07:57 10/27/17 07:57 Laboratory Results - last 24 hr 10/26/17 10/26/17 10/27/17 17:57 23:09 07:57 WBC 2.4 L RBC 3.18 L Hgb 11.4 L Hct 34.1 L MCV 107.3 H MCH 35.8 H MCHC 33.3 RDW 13.5 Plt Count 181 MPV 8.3 Prelim Diff (Auto) Slide review pending Neut % (Auto) 27.3 Lymph % (Auto) 44.0 [place] % (Auto) 16.4 H Eos % (Auto) 9.5 H Baso % (Auto) 2.8 H Neut # (Auto) 0.7 L Lymph # (Auto) 1.1 [place] # (Auto) 0.4 Eos # (Auto) 0.2 Baso # (Auto) 0.1 WBC Differential Manual diff final Seg Neuts % (Manual) 25 Band Neuts % (Manual) 3 Lymphocytes % (Manual) 52 H Monocytes % (Manual) 7 Eosinophils % (Manual) 10 H Basophils % (Manual) 3 H Abs Neuts (Manual) 0.7 L Differential Comment . Platelet Estimate Normal Platelet Morphology Normal Sodium Potassium Chloride Carbon Dioxide Anion Gap BUN Creatinine Estimated GFR POC Glucose 88 114 H Random Glucose Calcium Total Bilirubin AST ALT Alkaline Phosphatase Total Protein Albumin 10/27/17 10/27/17 07:57 09:09 WBC RBC Hgb Hct MCV MCH MCHC RDW Plt Count MPV Prelim Diff (Auto) Neut % (Auto) Lymph % (Auto) [place] % (Auto) Eos % (Auto) Baso % (Auto) Neut # (Auto) Lymph # (Auto) [place] # (Auto) Eos # (Auto) Baso # (Auto) WBC Differential Seg Neuts % (Manual) Band Neuts % (Manual) Lymphocytes % (Manual) Monocytes % (Manual) Eosinophils % (Manual) Basophils % (Manual) Abs Neuts (Manual) Differential Comment Platelet Estimate Platelet Morphology Sodium 146 H Potassium 3.9 Chloride 115 H Carbon Dioxide 20.4 L Anion Gap 11 BUN 13 Creatinine 1.38 H Estimated GFR 37 L POC Glucose 93 Random Glucose 109 H Calcium 8.9 Total Bilirubin 0.5 AST 53 H ALT 55 H Alkaline Phosphatase 190 H Total Protein 7.9 Albumin 3.4 Assessment and Plan - Plan Patient is a 77-year-old female with a past medical history of hypertension, diabetes, leukemia and GERD who presented to the emergency room with complaints of bloody stool. GI bleed -Hemoglobin 10.4 --> 9.7 ---10.8; Hemoccult positive -PPI started -Serial H&H -GI consulted;EGD/colonoscopy on 10/27-no bleeding or concerning results. Recommend following up with GI outpatient. HTN, chronic -Resume home medications, monitor vitals DM, chronic -Accu checks with SSI -Diabetic diet when no longer NPO DVT prophylaxis: SCDs, no chemical due to bleeding
--- NOTE | 2017-10-27 12:56 | P.DS ---
Date of admission: 10/25/17 18:57 Primary care physician: Todd Marquez Attending physician on discharge: Hermilo Andersen Anticipated date of discharge: 10/27/17 Brief History from admission: 77 y/o female with a history of HTN, DM, leukemia and gerd presented to the ED with complains of bright red blood when using the bathroom. She states was not having a bowel movement when this happened but has had dark stools prior a few weeks ago. Denies taking any blood thinners. She also denies any abdominal pain , chest pain, sob, fever, dizziness or weakness. DS: Diagnosis - Discharge Diagnosis (1) Anemia Status: Acute (2) Melena Status: Acute DS: Summary Hospital Course: Patient is a 77-year-old female with a past medical history of hypertension, diabetes, leukemia and GERD who presented to the emergency room with complaints of bloody stool. Admitted for GI bleed; Hemoccult positive at admit. EGD and colonoscopy done 10/27/17 with no bleeding or concerning results. Did note small to medium size internal hemorrhoids which were likely source of bleeding. Hemoglobin stabilized. Recommend follow-up with GI outpatient. - Time Spent with Patient Total time spent providing and/or coordinating discharge services: Less than 30 minutes - Quality: VTE Deep Vein Thrombosis/Pulmonary Embolism Present on Admission: No Exam Vital signs: Vital Signs 10/26/17 16:00 10/26/17 20:00 10/26/17 23:56 Temperature 97.6 F 98.1 F Pulse Rate 78 74 46 L Respiratory Rate 16 19 19 Blood Pressure 134/63 135/60 113/53 L Pulse Oximetry 99 94 L 96 10/27/17 02:30 10/27/17 03:52 10/27/17 08:00 Temperature 97.9 F 98.5 F Pulse Rate 57 L 91 H 65 Respiratory Rate 19 20 Blood Pressure 154/58 H 155/68 H Pulse Oximetry 95 97 10/27/17 11:20 10/27/17 12:00 Temperature 97.5 F L 98.1 F Pulse Rate 64 67 Respiratory Rate 18 20 Blood Pressure 104/99 H 145/63 H Pulse Oximetry 99 98 Intake & Output 10/26/17 10/27/17 10/27/17 18:59 06:59 18:59 Intake Total 1000 / 1000 1000 / 1000 Output Total Balance 999 / 999 1000 / 1000 Intake: IV 1000 / 1000 1000 / 1000 D5W/1/2 NS Inj 1,000 ML @ 100 1000 / 1000 1000 / 1000 mls/hr IV.CONT .Q10H [facility] Rx#: [id number] Output: Stool Other: Date of Last Bowel Movement 10/26/17 # Bowel Movements 2 Narrative: GENERAL: Well-nourished, well-developed adult female in no obvious distress. SKIN: Warm and dry. HEAD: Atraumatic. Normocephalic. CARDIOVASCULAR: Regular rate and rhythm. RESPIRATORY: No accessory muscle use. Clear to auscultation. Breath sounds equal bilaterally. GASTROINTESTINAL: Abdomen soft, non-tender, non-distended. Positive bowel sounds. MUSCULOSKELETAL: Extremities without clubbing, cyanosis, or edema. No obvious deformities. NEUROLOGICAL: Awake and alert. No obvious cranial nerve deficits. Motor grossly within normal limits. Normal speech. PSYCHIATRIC: Appropriate mood and affect; insight and judgment good. Results Procedures completed during hospitalization: EGD/colonoscopy Labs on day of discharge: Labs from last 24 hours 10/27/17 10/27/17 10/27/17 09:09 07:57 07:57 WBC 2.4 L RBC 3.18 L Hgb 11.4 L Hct 34.1 L MCV 107.3 H MCH 35.8 H MCHC 33.3 RDW 13.5 Plt Count 181 MPV 8.3 Prelim Diff (Auto) Slide review pending Neut % (Auto) 27.3 Lymph % (Auto) 44.0 [place] % (Auto) 16.4 H Eos % (Auto) 9.5 H Baso % (Auto) 2.8 H Neut # (Auto) 0.7 L Lymph # (Auto) 1.1 [place] # (Auto) 0.4 Eos # (Auto) 0.2 Baso # (Auto) 0.1 WBC Differential Manual diff final Seg Neuts % (Manual) 25 Band Neuts % (Manual) 3 Lymphocytes % (Manual) 52 H Monocytes % (Manual) 7 Eosinophils % (Manual) 10 H Basophils % (Manual) 3 H Abs Neuts (Manual) 0.7 L Differential Comment . Platelet Estimate Normal Platelet Morphology Normal Sodium 146 H Potassium 3.9 Chloride 115 H Carbon Dioxide 20.4 L Anion Gap 11 BUN 13 Creatinine 1.38 H Estimated GFR 37 L POC Glucose 93 Random Glucose 109 H Calcium 8.9 Total Bilirubin 0.5 AST 53 H ALT 55 H Alkaline Phosphatase 190 H Total Protein 7.9 Albumin 3.4 10/26/17 10/26/17 23:09 17:57 WBC RBC Hgb Hct MCV MCH MCHC RDW Plt Count MPV Prelim Diff (Auto) Neut % (Auto) Lymph % (Auto) [place] % (Auto) Eos % (Auto) Baso % (Auto) Neut # (Auto) Lymph # (Auto) [place] # (Auto) Eos # (Auto) Baso # (Auto) WBC Differential Seg Neuts % (Manual) Band Neuts % (Manual) Lymphocytes % (Manual) Monocytes % (Manual) Eosinophils % (Manual) Basophils % (Manual) Abs Neuts (Manual) Differential Comment Platelet Estimate Platelet Morphology Sodium Potassium Chloride Carbon Dioxide Anion Gap BUN Creatinine Estimated GFR POC Glucose 114 H 88 Random Glucose Calcium Total Bilirubin AST ALT Alkaline Phosphatase Total Protein Albumin - Impressions ITS Impressions Venous Doppler Study 10/25/17 00:00 CONCLUSION: 1. The study is negative for lower extremity deep venous thrombosis. Abdomen/Pelvis CT 10/25/17 16:52 CONCLUSION: 1. Negative noncontrast CT abdomen/pelvis. Discharge Plan - Discharge Disposition Patient Disposition: 01 Discharge Home - Discharge Condition Condition: Stable - Discharge Order Discharge Orders: Discharge Order (Routine); Ordered 10/27/17 Ordered By: Ailyn Holguin - Physicians Team Attending Provider: Hermilo Andersen Other Providers: Danie Yeh MD
[2017-10-27 17:02] VITALS: PULSE 72
--- NOTE | 2017-10-28 16:39 | ECG ---
Date Performed: 10/27/2017 Time Performed: 10:18:36 PTAGE: 77 years EKG: SINUS BRADYCARDIA WITH FIRST DEGREE AV BLOCK WITH FREQUENT SUPRAVENTRICULAR PREMATURE COMPL EXES NONSPECIFIC ST & T-WAVE ABNORMALITY PROLONGED QT INTERVAL Compared to previous tracing, QT inter lance is slightly longer. ABNORMAL ECG PREVIOUS TRACING : 07/10/2016 06.06 DOCTOR: Bobo Torres Interpretating Date/Time 10/28/2017 16:38:32
== END 2017-10-27 16:33 | disposition home or self-care (01) ==
LOC: NEDA 15:56 → NEPC 15:56 → NEPFCDU 22:11
PROVIDERS: ADMIT Hospitalist; ATTEND Hospitalist
PROC: PANENDO (2017-10-27 10:40)
PROC: COLONOS (2017-10-27 10:40)